=== PATIENT | female | born 1930 | race Caucasian/White ===

== ENCOUNTER 2016-10-16 19:17 | Inpatient (IN) | payer MEDICARE, BC ==
--- NOTE | 2016-10-16 19:19 | EDM.PDOC ---
ED HPI GENERAL MEDICAL PROBLEM - General Chief Complaint: General Stated Complaint: [facility] Time Seen by Provider: 10/16/16 19:18 - History of Present Illness INITIAL COMMENTS - FREE TEXT/NARRATIVE: 86-year-old female brought [facility] with fever cough and vomiting. Patient has been sick all day today she said several episodes of vomiting she has a worsening cough she was noted to be quite hypoxic at the care home. Patient has advanced dementia and is an unreliable history get. According to family she's had a significant past medical history advancing dementia prior to this had fibromyalgia hypothyroidism. She had an episode, reaction like, on opioid medications that she had a hard time recovering from and she's been in [facility] from that time no history of stroke. She had a history of heart problems in her middle-aged years but apparently this revolved. She's retired schoolteacher. - Related Data Allergies Allergy/AdvReac Type Severity Reaction Status Date / Time erythromycin base Allergy Cannot Verified 10/16/16 19:43 Remember ibuprofen Allergy Cannot Verified 10/16/16 19:43 Remember sulfamethoxazole Allergy Cannot Verified 10/16/16 19:43 Remember Home Meds: Home Meds Acetaminophen 650 mg PO Q6H PRN 05/17/16 [History] Aspirin [Ecotrin] 81 mg PO DAILY 05/17/16 [History] Bisacodyl [Dulcolax] 1 supp RECTAL ASDIRECTED PRN 05/17/16 [History] Cholecalciferol (Vitamin D3) [Vitamin D3] 2,000 unit PO DAILY 05/17/16 [History] Docusate Sodium 100 mg PO BID 05/17/16 [History] Furosemide 80 mg PO DAILY 05/17/16 [History] Insulin Aspart [NovoLOG] 10 unit SUBCUT BID 05/17/16 [History] Insulin Aspart [Novolog Flexpen] 12 units SUBCUT DAILY 05/17/16 [History] Insulin Glarg,Human.Rec.Analog [Lantus Solostar] 32 units SUBCUT DAILY 05/17/16 [History] Levothyroxine [Synthroid] 100 mcg PO DAILY 05/17/16 [History] Lisinopril 20 mg PO BID 05/17/16 [History] Memantine HCl/Donepezil HCl [Namzaric 28 mg-10 mg Capsule] 1 tab PO BEDTIME [History] Multivitamin/Iron/Folic Acid [Centrum Complete Multivit] 1 tab PO DAILY [History] [place]-3 Fatty Acids [Fish Oil] 1,000 mg PO DAILY 05/17/16 [History] Potassium Chloride 20 meq PO QID 05/17/16 [History] Simvastatin [Zocor] 20 mg PO BEDTIME 05/17/16 [History] traMADol [Ultram] 50 mg PO Q6HR PRN 05/17/16 [History] Past Medical History Cardiovascular History: Reports: High cholesterol, Hypertension Other Cardiovascular History: edema Gastrointestinal History: Reports: Chronic constipation, GERD Musculoskeletal History: Reports: Fibromyalgia, Osteoarthritis, Other (see below ) Other Musculoskeletal History: Dorsalgia, generalized muscle weakness, difficulty walking, chronic pain Psychiatric History: Reports: Anxiety, Dementia, Depression Other Psychiatric History: mood disorder with major depressive-like episode Endocrine/Metabolic History: Reports: Diabetes, type II, Hypothyroidism Social & Family History - Tobacco Use Smoking Status *Q: Never Smoker - Recreational Drug Use Recreational Drug Use: No ED ROS GENERAL - Review of Systems Review Of Systems: Unable To Obtain ED EXAM, GENERAL - Physical Exam Exam: See Below Exam Limited By: Other (Dementia) General Appearance: no apparent distress, other ( she will answer only the simplest of questions) Eye Exam: bilateral eye: normal inspection Ears: normal external exam, normal canal, normal TMs Nose: normal inspection, normal mucosa, no blood Throat/Mouth: Normal inspection, Normal teeth, Normal gums, Normal oropharynx, Normal voice, No airway compromise, Other (Summary dry mucosa) Head: atraumatic, normocephalic Neck: normal inspection, non-tender. No: lymphadenopathy (L), lymphadenopathy ( R) Respiratory/Chest: no respiratory distress, normal breath sounds, other (She has bibasilar crackles these did clear somewhat with repetitive deep breathing) Cardiovascular: regular rate, rhythm, no murmur, other (2+ pitting edema per family this is normal). No: no edema GI/Abdominal: normal bowel sounds, soft, non tender, no organomegaly, no distention, no abnormal bruit, no mass, other (Obesity) Neurological: other (Neuro exam is limited she does have equal party director strength noted bilaterally however her party director is weak). No: normal cognition Skin Exam: Warm, Dry, Intact Lymphatic: no adenopathy Course - Vital Signs Last Recorded V/S: Last Vital Signs Temp 36.5 C 10/16/16 19:19 Pulse 91 10/16/16 19:19 Resp 20 10/16/16 19:19 BP 96/56 L 10/16/16 19:19 Pulse Ox 91 L 10/16/16 19:19 - Orders/Labs/Meds Orders: Active Orders 24 hr Category Date Time Status Patient Status [ADT] Stat ADT 10/16/16 21:01 Active EKG Documentation Completion [RC] STAT Care 10/16/16 19:31 Active Chest 1V Frontal [CR] Stat Exams 10/16/16 19:30 Taken CULTURE BLOOD [BC] Stat Lab 10/16/16 19:47 Received CULTURE BLOOD [BC] Stat Lab 10/16/16 19:57 Received CULTURE URINE [RM] Stat Lab 10/16/16 20:26 Received Lactated Ringers [Ringers, Lactated] 1,000 ml Med 10/16/16 19:45 Active IV ASDIRECTED Blood Culture x2 Reflex Set [OM.PC] Stat Oth 10/16/16 19:33 Ordered Medication Orders Lactated Ringer's (Ringers, Lactated) 1,000 mls @ 125 mls/hr IV ASDIRECTED JOHNNIE Labs: Laboratory Tests 10/16/16 10/16/16 10/16/16 Range/Units 19:47 19:47 19:47 WBC 8.35 (3.98-10.04) K/mm3 RBC 4.80 (3.98-5.22) M/mm3 Hgb 15.3 (11.2-15.7) gm/L Hct 46.6 H (34.1-44.9) % MCV 97.1 H (79.4-94.8) fl MCH 31.9 (25.6-32.2) pg MCHC 32.8 (32.2-35.5) g/dl RDW Std Deviation 47.7 H (36.4-46.3) fL Plt Count 159 L (182-369) K/mm3 MPV 10.0 (9.4-12.3) fl Neutrophils % (Manual) 76 H (40-60) % Band Neutrophils % 15 H (0-10) % Lymphocytes % (Manual) 4 L (20-40) % Atypical Lymphs % 2 % Monocytes % (Manual) 3 (2-10) % Eosinophils % (Manual) 0 L (0.7-5.8) % Basophils % (Manual) 0 L (0.1-1.2) Toxic Granulation 1+ slight Platelet Estimate Decreased Plt Morphology Comment Normal Polychromasia Few Stomatocytes Few RBC Morph Comment Not Reportable PT 10.2 (8.0-13.0) SECONDS INR 0.94 APTT 24 (22-36) SECONDS Sodium 144 (136-145) mEq/L Potassium 3.8 (3.5-5.1) mEq/L Chloride 104 (98-107) mEq/L Carbon Dioxide 32 (21-32) mEq/L Anion Gap 11.8 (5-15) BUN 30 H (7-18) mg/dL Creatinine 1.4 H (0.55-1.02) mg/dL Est Cr Clr Drug Dosing 27.50 mL/min Estimated GFR (MDRD) 36 (>60) mL/min BUN/Creatinine Ratio 21.4 H (14-18) Glucose 153 H (83-115) mg/dL Lactic Acid (0.4-2.0) mmol/L Calcium 8.9 (8.5-10.1) mg/dL Total Bilirubin 0.6 (0.2-1.0) mg/dL AST 26 (15-37) U/L ALT 39 (14-59) U/L Alkaline Phosphatase 83 (46-116) U/L Troponin I (0.00-0.056) ng/mL B-Natriuretic Peptide (0-100) pg/mL Total Protein 6.3 L (6.4-8.2) g/dl Albumin 2.9 L (3.4-5.0) g/dl Globulin 3.4 gm/dL Albumin/Globulin Ratio 0.9 L (1-2) TSH 3rd Generation (0.358-3.74) uIU/mL Urine Color (Yellow) Urine Appearance (Clear) Urine pH (5.0-8.0) Ur Specific [place] (1.005-1.030) Urine Protein (Negative) Urine Glucose (UA) (Negative) Urine Ketones (Negative) Urine Occult Blood (Negative) Urine Nitrite (Negative) Urine Bilirubin (Negative) Urine Urobilinogen (0.2-1.0) Ur Leukocyte Esterase (Negative) Urine RBC (0-5) /hpf Urine WBC (0-5) /hpf Urine WBC Clumps (NOT SEEN) /hpf Ur Epithelial Cells (0-5) /hpf Urine Bacteria (FEW) /hpf Urine Mucus (FEW) /hpf Urine Yeast (NOT SEEN) Mycoplasma pneumon IgM (NEGATIVE) 10/16/16 10/16/16 10/16/16 Range/Units 19:47 19:47 19:47 WBC (3.98-10.04) K/mm3 RBC (3.98-5.22) M/mm3 Hgb (11.2-15.7) gm/L Hct (34.1-44.9) % MCV (79.4-94.8) fl MCH (25.6-32.2) pg MCHC (32.2-35.5) g/dl RDW Std Deviation (36.4-46.3) fL Plt Count (182-369) K/mm3 MPV (9.4-12.3) fl Neutrophils % (Manual) (40-60) % Band Neutrophils % (0-10) % Lymphocytes % (Manual) (20-40) % Atypical Lymphs % % Monocytes % (Manual) (2-10) % Eosinophils % (Manual) (0.7-5.8) % Basophils % (Manual) (0.1-1.2) Toxic Granulation Platelet Estimate Plt Morphology Comment Polychromasia Stomatocytes RBC Morph Comment PT (8.0-13.0) SECONDS INR APTT (22-36) SECONDS Sodium (136-145) mEq/L Potassium (3.5-5.1) mEq/L Chloride (98-107) mEq/L Carbon Dioxide (21-32) mEq/L Anion Gap (5-15) BUN (7-18) mg/dL Creatinine (0.55-1.02) mg/dL Est Cr Clr Drug Dosing mL/min Estimated GFR (MDRD) (>60) mL/min BUN/Creatinine Ratio (14-18) Glucose (83-115) mg/dL Lactic Acid 1.8 (0.4-2.0) mmol/L Calcium (8.5-10.1) mg/dL Total Bilirubin (0.2-1.0) mg/dL AST (15-37) U/L ALT (14-59) U/L Alkaline Phosphatase (46-116) U/L Troponin I 0.035 (0.00-0.056) ng/mL B-Natriuretic Peptide (0-100) pg/mL Total Protein (6.4-8.2) g/dl Albumin (3.4-5.0) g/dl Globulin gm/dL Albumin/Globulin Ratio (1-2) TSH 3rd Generation 1.556 (0.358-3.74) uIU/mL Urine Color (Yellow) Urine Appearance (Clear) Urine pH (5.0-8.0) Ur Specific [place] (1.005-1.030) Urine Protein (Negative) Urine Glucose (UA) (Negative) Urine Ketones (Negative) Urine Occult Blood (Negative) Urine Nitrite (Negative) Urine Bilirubin (Negative) Urine Urobilinogen (0.2-1.0) Ur Leukocyte Esterase (Negative) Urine RBC (0-5) /hpf Urine WBC (0-5) /hpf Urine WBC Clumps (NOT SEEN) /hpf Ur Epithelial Cells (0-5) /hpf Urine Bacteria (FEW) /hpf Urine Mucus (FEW) /hpf Urine Yeast (NOT SEEN) Mycoplasma pneumon IgM (NEGATIVE) 10/16/16 10/16/16 10/16/16 Range/Units 19:47 19:47 20:25 WBC (3.98-10.04) K/mm3 RBC (3.98-5.22) M/mm3 Hgb (11.2-15.7) gm/L Hct (34.1-44.9) % MCV (79.4-94.8) fl MCH (25.6-32.2) pg MCHC (32.2-35.5) g/dl RDW Std Deviation (36.4-46.3) fL Plt Count (182-369) K/mm3 MPV (9.4-12.3) fl Neutrophils % (Manual) (40-60) % Band Neutrophils % (0-10) % Lymphocytes % (Manual) (20-40) % Atypical Lymphs % % Monocytes % (Manual) (2-10) % Eosinophils % (Manual) (0.7-5.8) % Basophils % (Manual) (0.1-1.2) Toxic Granulation Platelet Estimate Plt Morphology Comment Polychromasia Stomatocytes RBC Morph Comment PT (8.0-13.0) SECONDS INR APTT (22-36) SECONDS Sodium (136-145) mEq/L Potassium (3.5-5.1) mEq/L Chloride (98-107) mEq/L Carbon Dioxide (21-32) mEq/L Anion Gap (5-15) BUN (7-18) mg/dL Creatinine (0.55-1.02) mg/dL Est Cr Clr Drug Dosing mL/min Estimated GFR (MDRD) (>60) mL/min BUN/Creatinine Ratio (14-18) Glucose (83-115) mg/dL Lactic Acid (0.4-2.0) mmol/L Calcium (8.5-10.1) mg/dL Total Bilirubin (0.2-1.0) mg/dL AST (15-37) U/L ALT (14-59) U/L Alkaline Phosphatase (46-116) U/L Troponin I (0.00-0.056) ng/mL B-Natriuretic Peptide 60 (0-100) pg/mL Total Protein (6.4-8.2) g/dl Albumin (3.4-5.0) g/dl Globulin gm/dL Albumin/Globulin Ratio (1-2) TSH 3rd Generation (0.358-3.74) uIU/mL Urine Color Yellow (Yellow) Urine Appearance Slt cloudy H (Clear) Urine pH 7.0 (5.0-8.0) Ur Specific [place] 1.020 (1.005-1.030) Urine Protein Negative (Negative) Urine Glucose (UA) Negative (Negative) Urine Ketones Negative (Negative) Urine Occult Blood Negative (Negative) Urine Nitrite Negative (Negative) Urine Bilirubin Negative (Negative) Urine Urobilinogen 0.2 (0.2-1.0) Ur Leukocyte Esterase Negative (Negative) Urine RBC 0-5 (0-5) /hpf Urine WBC 0-5 (0-5) /hpf Urine WBC Clumps Not seen (NOT SEEN) /hpf Ur Epithelial Cells Not seen (0-5) /hpf Urine Bacteria Many H (FEW) /hpf Urine Mucus Not seen (FEW) /hpf Urine Yeast Not seen (NOT SEEN) Mycoplasma pneumon IgM Negative (NEGATIVE) Meds: Medications Generic Name Dose Route Start Last Admin Trade Name Freq PRN Reason Stop Dose Admin Lactated Ringer's 1,000 mls @ 125 mls/hr 10/16/16 19:45 Ringers, Lactated IV ASDIRECTED JOHNNIE Discontinued Medications Generic Name Dose Route Start Last Admin Trade Name [place] PRN Reason Stop Dose Admin Lactated Ringer's 500 mls @ 999 mls/hr 10/16/16 19:32 10/16/16 19:54 Ringers, Lactated IV 10/16/16 20:02 999 mls/hr .BOLUS ONE Administration Ondansetron HCl 4 mg 10/16/16 19:32 10/16/16 19:51 Zofran IVPUSH 10/16/16 19:33 4 mg ONETIME ONE Administration - Re-Assessments/Exams Free Text/Narrative Re-Assessment/Exam: 10/16/16 21:04 Labs reviewed she is somewhat dehydrated she has significant bacteria in her urine without evidence of infection. The patient responded nicely to a 500 cc bolus she's continued on IV fluids but pressure now 102/56 map 68. Patient will be admitted for treatment of dehydration, Dr. Plunkett consulted who will admit. Head CT chest CT nondiagnostic chest x-ray was poor inspiration no acute changes. Departure - Departure Time of Disposition: 21:06 Disposition: Admitted As Inpatient 67 Clinical Impression: Dehydration, Altered mental status, Nausea & vomiting Referrals: Ellie Canada MD [Primary Care Provider] - - My Orders Last 24 Hours: My Active Orders 10/16/16 19:30 Chest 1V Frontal [CR] Stat 10/16/16 19:31 EKG Documentation Completion [RC] STAT 10/16/16 19:33 Blood Culture x2 Reflex Set [OM.PC] Stat 10/16/16 19:45 Lactated Ringers [Ringers, Lactated] 1,000 ml IV ASDIRECTED 10/16/16 19:47 CULTURE BLOOD [BC] Stat 10/16/16 19:57 CULTURE BLOOD [BC] Stat 10/16/16 20:26 CULTURE URINE [RM] Stat 10/16/16 21:01 Patient Status [ADT] Stat - Assessment/Plan Last 24 Hours: My Active Orders 10/16/16 19:30 Chest 1V Frontal [CR] Stat 10/16/16 19:31 EKG Documentation Completion [RC] STAT 10/16/16 19:33 Blood Culture x2 Reflex Set [OM.PC] Stat 10/16/16 19:45 Lactated Ringers [Ringers, Lactated] 1,000 ml IV ASDIRECTED 10/16/16 19:47 CULTURE BLOOD [BC] Stat 10/16/16 19:57 CULTURE BLOOD [BC] Stat 10/16/16 20:26 CULTURE URINE [RM] Stat 10/16/16 21:01 Patient Status [ADT] Stat
[2016-10-16] MEDS ORDERED: Lactated Ringers 500 ML IV ONE (19:32)
[2016-10-16] MEDS ORDERED: Ondansetron 4 MG/2 ML SDV IVPUSH ONE (19:32)
[2016-10-16] MEDS ORDERED: Lactated Ringers 1,000 ML IV SCH (19:45)
--- NOTE | 2016-10-16 20:29 | CT ---
Head CT Technique: Multiple axial sections through the brain were obtained. Intravenous contrast was not utilized. Comparison: Previous head CT study of 04/25/13. Findings: Ventricles along with basal cisterns and sulci over the convexities are moderately prominent. Diminished density is noted within the periventricular and subcortical white matter which is felt compatible with small vessel ischemic demyelination change. Low density is noted within the right frontal region which most likely represents old infarct. 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 No other abnormal parenchymal densities are seen. No evidence of intracranial hemorrhage. No midline shift or mass effect is seen. Bone window settings were reviewed which shows no discrete calvarial abnormality. Visualized sinuses are clear. Impression: 1. Senescent change as noted above. Senescent change has progressed from previous exam. 2. No acute intracranial abnormality is identified. Diagnostic code #2
--- NOTE | 2016-10-16 20:32 | CT ---
Chest CT Technique: Multiple axial sections through the chest were obtained. Intravenous contrast was not utilized. Comparison: No previous chest CT, previous chest x-ray performed earlier on the same day is available. Findings: Atherosclerotic calcification is seen within the thoracic aorta. Mild coronary artery calcification is seen. No pericardial thickening is seen. Small portion of the noncontrast upper abdominal structures appear within normal limits. Calcified granuloma is noted within the right middle lobe measuring approximately 1 cm which is incidental. Mild dependent atelectasis is seen posteriorly within the right lung base. Lungs otherwise are clear. Bone window settings were reviewed which shows minimal degenerative change within the spine. Impression: 1. Incidental findings. Nothing acute is seen on noncontrast chest CT. Diagnostic code #2
[2016-10-16] MEDS ORDERED: 50% Dextrose in Water 50 ML Syringe IVPUSH PRN (21:46)
[2016-10-16] MEDS ORDERED: Acetaminophen Susp 325 MG/10.15 ML UD Cup PO PRN (21:48)
[2016-10-16] MEDS ORDERED: Levofloxacin/Dextrose 5%-Water 750 MG in Premix Bag 1 BAG IV SCH (22:00)
[2016-10-16] MEDS ORDERED: Lactated Ringers 1,000 ML IV ONE (22:00)
[2016-10-16] MEDS: Insulin Aspart 100 Units/ML 3 ML Pen SUBCUT SCH (22:29)
[2016-10-16] MEDS: Sodium Chloride 0.9% 1,000 ML IV SCH (22:30)
[2016-10-17] MEDS: Ondansetron 4 MG/2 ML SDV IVPUSH PRN ×2 (03:30→17:31)
[2016-10-17] MEDS: Sodium Chloride 0.9% 1,000 ML IV SCH (05:58)
[2016-10-17] MEDS: Insulin Aspart 100 Units/ML 3 ML Pen SUBCUT SCH ×4 (06:07→21:23)
--- NOTE | 2016-10-17 09:17 | PCM.HP ---
H&P History of Present Illness - General Date of Service: 10/16/16 Admit Problem/Dx: Admission Diagnosis/Problem Admission Diagnosis/Problem Dehydration Source of Information: Family, Provider History Limitations: Reports: No limitations - History of Present Illness Initial Comments - Free Text/Narative: 86 year old female from [place] with abrupt change in mental status has baseline dementia. History provided by nephew during assessment in ED. Has had decrease oral intake, episodes of nausea and vomiting. Has also had a cough, non-productive. WBCs are 8.35 (neutrophils 76%/bands 15%, CRP to be drawn; lactic acis is unremarkable. Tn as well as TSH are WNL. CXR, 1 view does not reveal an acute process. Onset of Symptoms: Reports: sudden Symptom Onset Date: 10/16/16 Duration of Symptoms: Reports: Hour(s):, Getting worse Location: Reports: generalized Severity: moderate Improves with: Reports: Medication Worsens with: Reports: None Associated Symptoms: Reports: loss of appetite, malaise, nausea/vomiting, weakness - Related Data Allergies/Adverse Reactions: Allergies Allergy/AdvReac Type Severity Reaction Status Date / Time erythromycin base Allergy Cannot Verified 10/16/16 19:43 Remember ibuprofen Allergy Cannot Verified 10/16/16 19:43 Remember sulfamethoxazole Allergy Cannot Verified 10/16/16 19:43 Remember Home Medications: Home Meds Acetaminophen 650 mg PO Q6H PRN 05/17/16 [History] Aspirin [Ecotrin] 81 mg PO DAILY 05/17/16 [History] Bisacodyl [Dulcolax] 1 supp RECTAL ASDIRECTED PRN 05/17/16 [History] Cholecalciferol (Vitamin D3) [Vitamin D3] 2,000 unit PO DAILY 05/17/16 [History] Docusate Sodium 100 mg PO BID 05/17/16 [History] Furosemide 80 mg PO DAILY 05/17/16 [History] Insulin Aspart [NovoLOG] 12 unit SUBCUT ACBREAKFAST 05/17/16 [History] Insulin Aspart [Novolog Flexpen] 14 units SUBCUT ACDINNER 05/17/16 [History] Insulin Glarg,Human.Rec.Analog [Lantus Solostar] 32 units SUBCUT DAILY 05/17/16 [History] Levothyroxine [Synthroid] 100 mcg PO DAILY 05/17/16 [History] Lisinopril 20 mg PO BID 05/17/16 [History] Memantine HCl/Donepezil HCl [Namzaric 28 mg-10 mg Capsule] 1 tab PO BEDTIME [History] Multivitamin/Iron/Folic Acid [Centrum Complete Multivit] 1 tab PO DAILY [History] Scroggins-3 Fatty Acids [Fish Oil] 1,000 mg PO DAILY 05/17/16 [History] Potassium Chloride 20 meq PO QID 05/17/16 [History] Simvastatin [Zocor] 20 mg PO BEDTIME 05/17/16 [History] traMADol [Ultram] 50 mg PO Q6HR PRN 05/17/16 [History] Insulin Aspart [NovoLOG] 12 unit SUBCUT ACLUNCH 10/20/16 [History] Metolazone 2.5 mg PO MOFR 10/20/16 [History] Spironolactone [Aldactone] 12.5 mg PO DAILY #30 tablet 10/21/16 [Rx] Past Medical History Cardiovascular History: Reports: High cholesterol, Hypertension Other Cardiovascular History: edema Gastrointestinal History: Reports: Chronic constipation, GERD Genitourinary History: Reports: Urinary incontinence Musculoskeletal History: Reports: Back pain, chronic, Fibromyalgia, Osteoarthritis, Other (see below) Other Musculoskeletal History: Dorsalgia, generalized muscle weakness, difficulty walking, chronic pain Psychiatric History: Reports: Anxiety, Dementia, Depression Other Psychiatric History: mood disorder with major depressive-like episode Endocrine/Metabolic History: Reports: Diabetes, type II, Hypothyroidism Other Endocrine/Metabolic History: hypokalemia, vitamin deficiency Hematologic History: Reports: Other (see below) Other Hematologic History: vitamin D deficiency, hypokalemia Social & Family History - Family History Family Medical History: Noncontributory - Tobacco Use Smoking Status *Q: Never Smoker Second Hand Smoke Exposure: No - Caffeine Use Caffeine Use: Reports: Coffee - Recreational Drug Use Recreational Drug Use: No H&P Review of Systems - Review of Systems: Review Of Systems: See Below General: Reports: weakness HEENT: Reports: no symptoms Pulmonary: Reports: No Symptoms Cardiovascular: Reports: no symptoms Gastrointestinal: Reports: Decreased appetite Genitourinary: Reports: no symptoms Musculoskeletal: Reports: no symptoms Skin: Reports: no symptoms Psychiatric: Reports: confusion Neurological: Reports: Confusion Hematologic/Lymphatic: Reports: no symptoms Immunologic: Reports: no symptoms Exam - Exam Exam: See Below - Vital Signs Vital Signs: Last Vital Signs Temp 37.1 C 10/17/16 08:18 Pulse 81 10/17/16 08:18 Resp 18 10/17/16 08:18 BP 90/57 L 10/17/16 08:18 Pulse Ox 93 L 10/17/16 08:18 Weight: 99.654 kg - Exam Quality Assessment: DVT prophylaxis General: lethargic HEENT: EOMI, Nares patent, Normal nasal septum, Posterior pharynx clear, Pupils equal, Pupils reactive Neck: supple, trachea midline Lungs: Normal respiratory effort Cardiovascular: regular rate Abdomen: normal bowel sounds, soft (Female) Exam: Deferred Rectal (Female) Exam: Deferred Back Exam: normal inspection Extremities: normal pulses Skin: warm Neurological: cranial nerves intact Neuro Extensive - Mental Status: other (lethargic). No: alert, oriented x3 Neuro Extensive - Motor, Sensory, Reflexes: CN II-XII intact (grossly) - Patient Data Lab Results last 24 hrs: Laboratory Results - last 24 hr 10/16/16 10/17/16 10/17/16 Range/Units 22:15 05:52 05:52 WBC 7.10 (3.98-10.04) K/mm3 RBC 4.10 (3.98-5.22) M/mm3 Hgb 13.2 (11.2-15.7) gm/L Hct 40.8 (34.1-44.9) % MCV 99.5 H (79.4-94.8) fl MCH 32.2 (25.6-32.2) pg MCHC 32.4 (32.2-35.5) g/dl RDW Std Deviation 50.4 H (36.4-46.3) fL Plt Count 145 L (182-369) K/mm3 MPV 10.3 (9.4-12.3) fl Neut % (Auto) 81.5 H (34.0-71.1) % Lymph % (Auto) 9.6 L (19.3-51.7) % Phelps % (Auto) 7.0 (4.7-12.5) % Eos % (Auto) 1.3 (0.7-5.8) Baso % (Auto) 0.3 (0.1-1.2) % Neut # (Auto) 5.79 (1.56-6.13) K/mm3 Lymph # (Auto) 0.68 L (1.18-3.74) K/mm3 [place]ps # (Auto) 0.50 H (0.24-0.36) K/mm3 Eos # (Auto) 0.09 (0.04-0.36) K/mm3 Baso # (Auto) 0.02 (0.01-0.08) K/mm3 Manual Slide Review Abnormal smear Sodium 143 (136-145) mEq/L Potassium 3.9 (3.5-5.1) mEq/L Chloride 105 (98-107) mEq/L Carbon Dioxide 32 (21-32) mEq/L Anion Gap 9.9 (5-15) BUN 33 H (7-18) mg/dL Creatinine 1.5 H (0.55-1.02) mg/dL Est Cr Clr Drug Dosing 25.67 mL/min Estimated GFR (MDRD) 33 (>60) mL/min BUN/Creatinine Ratio 22.0 H (14-18) Glucose 137 H (83-115) mg/dL POC Glucose 181 H (83-110) mg/dL Calcium 7.6 L (8.5-10.1) mg/dL Magnesium 1.6 L (1.8-2.4) mg/dl Total Bilirubin 0.6 (0.2-1.0) mg/dL AST 24 (15-37) U/L ALT 34 (14-59) U/L Alkaline Phosphatase 67 (46-116) U/L C-Reactive Protein 16.4 H* (<1.0) mg/dL Total Protein 5.4 L (6.4-8.2) g/dl Albumin 2.3 L (3.4-5.0) g/dl Globulin 3.1 gm/dL Albumin/Globulin Ratio 0.7 L (1-2) TSH 3rd Generation 1.340 (0.358-3.74) uIU/mL 10/17/16 Range/Units 05:54 WBC (3.98-10.04) K/mm3 RBC (3.98-5.22) M/mm3 Hgb (11.2-15.7) gm/L Hct (34.1-44.9) % MCV (79.4-94.8) fl MCH (25.6-32.2) pg MCHC (32.2-35.5) g/dl RDW Std Deviation (36.4-46.3) fL Plt Count (182-369) K/mm3 MPV (9.4-12.3) fl Neut % (Auto) (34.0-71.1) % Lymph % (Auto) (19.3-51.7) % [place]helps % (Auto) (4.7-12.5) % Eos % (Auto) (0.7-5.8) Baso % (Auto) (0.1-1.2) % Neut # (Auto) (1.56-6.13) K/mm3 Lymph # (Auto) (1.18-3.74) K/mm3 Phelps # (Auto) (0.24-0.36) K/mm3 Eos # (Auto) (0.04-0.36) K/mm3 Baso # (Auto) (0.01-0.08) K/mm3 Manual Slide Review Sodium (136-145) mEq/L Potassium (3.5-5.1) mEq/L Chloride (98-107) mEq/L Carbon Dioxide (21-32) mEq/L Anion Gap (5-15) BUN (7-18) mg/dL Creatinine (0.55-1.02) mg/dL Est Cr Clr Drug Dosing mL/min Estimated GFR (MDRD) (>60) mL/min BUN/Creatinine Ratio (14-18) Glucose (83-115) mg/dL POC Glucose 133 H (83-110) mg/dL Calcium (8.5-10.1) mg/dL Magnesium (1.8-2.4) mg/dl Total Bilirubin (0.2-1.0) mg/dL AST (15-37) U/L ALT (14-59) U/L Alkaline Phosphatase (46-116) U/L C-Reactive Protein (<1.0) mg/dL Total Protein (6.4-8.2) g/dl Albumin (3.4-5.0) g/dl Globulin gm/dL Albumin/Globulin Ratio (1-2) TSH 3rd Generation (0.358-3.74) uIU/mL Result Diagrams: 10/21/16 05:50 10/21/16 05:50 *Q Meaningful Use (ADM) - VTE *Q VTE Criteria *Q: - Stroke *Q Stroke Criteria *Q: - AMI *Q AMI Criteria *Q: - Problem List (1) Altered mental status SNOMED Code(s): 925859361 ICD Code: R41.82 - ALTERED MENTAL STATUS, UNSPECIFIED Status: Resolved Priority: High Qualifiers: Altered mental status type: disorientation Qualified Code(s): R41.0 - Disorientation, unspecified (2) Dehydration SNOMED Code(s): 09736348 ICD Code: E86.0 - DEHYDRATION Status: Resolved Priority: High (3) Nausea & vomiting SNOMED Code(s): 76857532 ICD Code: R11.2 - NAUSEA WITH VOMITING, UNSPECIFIED Status: Acute Qualifiers: Vomiting type: unspecified Vomiting Intractability: unspecified Qualified Code(s): R11.2 - Nausea with vomiting, unspecified Problem List Initiated/Reviewed/Updated: Yes Orders Last 24hrs: Active Orders 24 hr Category Date Time Status Accu Check [Blood Glucose Check, Bedside] [RC] ,, Care 10/16/16 21:46 Active ,22 Antiembolic Devices [RC] BID Care 10/16/16 21:43 Active Aspiration Precautions [RC] ASDIRECTED Care 10/16/16 21:44 Active Bedrest [RC] ASDIRECTED Care 10/16/16 22:07 Active Communication Order [RC] ROUTINE Care 10/17/16 18:00 Active HOB [Head of Bed Elevation] [RC] ASDIRECTED Care 10/16/16 21:44 Active Vital Signs [RC] 03,09,15,21 Care 10/16/16 21:49 Active Full Liquid Diet [DIET] Diet 10/17/16 Lunch Active CXR [Chest 2V] [CR] Routine Exams 10/18/16 08:00 Ordered CBC W/O DIFF,HEMOGRAM [HEME] MOTH@0700 Lab 10/18/16 07:00 Ordered CBC W/O DIFF,HEMOGRAM [HEME] MOTH@0700 Lab 10/21/16 07:00 Ordered CBC W/O DIFF,HEMOGRAM [HEME] MOTH@0700 Lab 10/25/16 07:00 Ordered CBC W/O DIFF,HEMOGRAM [HEME] MOTH@0700 Lab 10/28/16 07:00 Ordered CBC W/O DIFF,HEMOGRAM [HEME] MOTH@0700 Lab 11/01/16 07:00 Ordered CBC W/O DIFF,HEMOGRAM [HEME] MOTH@0700 Lab 11/04/16 07:00 Ordered CULTURE MRSA SURVEY [RM] Routine Lab 10/17/16 06:00 Received INFLUENZA A,B, H1N1 BY PCR [MREF] Routine Lab 10/17/16 12:00 Uncollected MYCOPLASMA PNEUMONIAE IGM AB [CHEM] Routine Lab 10/17/16 12:00 Ordered STREP PNEUMONIAE ANTIGEN [MREF] Routine Lab 10/17/16 12:00 Uncollected Acetaminophen [Tylenol Solution] Med 10/16/16 21:48 Active 650 mg PO Q6H PRN Dextrose 50% in Water Med 10/16/16 21:46 Active 50 ml IVPUSH ASDIRECTED PRN Enoxaparin [Lovenox] Med 10/17/16 09:00 Active 30 mg SUBCUT DAILY Insulin Aspart [NovoLOG] Med 10/16/16 22:00 Active See Protocol SUBCUT QIDACANDBED Levofloxacin/Dextrose 5%-Water [Levaquin in D5W 750 MG/ Med 10/16/16 22:00 Active 150 ML] 750 mg Premix Bag 1 bag IV Q48H Ondansetron [Zofran] Med 10/17/16 03:22 Active 4 mg IVPUSH Q4H PRN Sodium Chloride 0.9% [Normal Saline] 1,000 ml Med 10/16/16 21:45 Active IV ASDIRECTED Sodium Chloride 0.9% [Normal Saline] 1,000 ml Med 10/17/16 18:00 Active IV ASDIRECTED SHAINA Hose [Antiembolic Hose] [OM.PC] Routine Oth 10/16/16 21:43 Ordered Code Status [Resuscitation Status] Routine Resus Stat 10/16/16 21:49 Ordered Medication Orders Acetaminophen (Tylenol Solution) 650 mg PO Q6H PRN PRN Reason: Fever Dextrose/Water (Dextrose 50% In Water) 50 ml IVPUSH ASDIRECTED PRN PRN Reason: Hypoglycemia Enoxaparin Sodium (Lovenox) 30 mg SUBCUT DAILY [facility] Levofloxacin/Dextrose 750 mg/ (Premix) 150 mls @ 100 mls/hr IV Q48H [facility] Last Admin: 10/16/16 22:27 Dose: 100 mls/hr Sodium Chloride (Normal Saline) 1,000 mls @ 125 mls/hr IV ASDIRECTED JOHNNIE Stop: 10/17/16 18:00 Last Admin: 10/17/16 05:58 Dose: 125 mls/hr Infusion: 10/17/16 05:58 Dose: 125 mls/hr Admin: 10/16/16 22:30 Dose: 125 mls/hr Sodium Chloride (Normal Saline) 1,000 mls @ 70 mls/hr IV ASDIRECTED [facility] Insulin Aspart (Novolog) 0 unit SUBCUT QIDACANDBED JOHNNIE PRN Reason: Protocol Last Admin: 10/17/16 06:07 Dose: Not Given Admin: 10/16/16 22:29 Dose: Ondansetron HCl (Zofran) 4 mg IVPUSH Q4H PRN PRN Reason: Nausea Last Admin: 10/17/16 03:30 Dose: 4 mg Assessment/Plan Comment:: Impression/Plan: AMS, unspecified; has baseline dementia likely Alzheimer Mood disorder, unspecified Infectious process has not been ruled out Chronic Hyperlipidemia HTN GERD DM type 2 Hypothyroidism Plan: Continue IVF Replace electrolytes Empiric levoquin, renal dose if needed; cover for PNA as well as UTI BC/UC DVT/GI prophylaxis
--- NOTE | 2016-10-17 09:26 | CR ---
Chest: Portable view of the chest was obtained. Comparison: Previous chest x-ray of 04/25/13. Heart size is slightly enlarged. Lungs are clear with no acute infiltrates. Tortuous thoracic aorta is seen. Bony structures are grossly intact. Impression: 1. Mild cardiomegaly. Nothing acute seen on portable chest x-ray. Diagnostic code #2
[2016-10-17] MEDS ORDERED: Acetaminophen Soln 650 MG/20.3 ML UD Cup PO PRN (09:39)
[2016-10-17] MEDS: Enoxaparin 30 MG/0.3 ML Syringe SUBCUT SCH (09:51)
[2016-10-17] MEDS ORDERED: Magnesium Sulfate/Water 4 GM in Premix Bag 1 BAG IV ONE (14:32)
--- NOTE | 2016-10-17 15:26 | PCM.PN ---
- General Info Date of Service: 10/17/16 Subjective Update: This point patient was reported to be drowsy and sleeping. She did not sleep well last night. She's not reporting any significant nausea or vomiting. Nurse has not observed her coughing today. On review of systems, Patient is not reporting any chest pain, any shortness of breath, abdominal pain or nausea. - Review of Systems Cardiovascular: Denies: Chest Pain Gastrointestinal: Denies: Abdominal pain, Nausea - Patient Data Vitals - most recent: Last Vital Signs Temp 37.1 C 10/17/16 08:18 Pulse 81 10/17/16 08:18 Resp 18 10/17/16 08:18 BP 90/57 L 10/17/16 08:18 Pulse Ox 93 L 10/17/16 08:18 Weight - most recent: 99.654 kg I&O - last 24 hours: Intake & Output 10/17/16 10/17/16 10/17/16 06:59 14:59 22:59 Intake Total 1190 831 Balance 1190 831 Lab Results last 24 hrs: Laboratory Results - last 24 hr 10/16/16 10/17/16 10/17/16 Range/Units 22:15 05:52 05:52 WBC 7.10 (3.98-10.04) K/mm3 RBC 4.10 (3.98-5.22) M/mm3 Hgb 13.2 (11.2-15.7) gm/L Hct 40.8 (34.1-44.9) % MCV 99.5 H (79.4-94.8) fl MCH 32.2 (25.6-32.2) pg MCHC 32.4 (32.2-35.5) g/dl RDW Std Deviation 50.4 H (36.4-46.3) fL Plt Count 145 L (182-369) K/mm3 MPV 10.3 (9.4-12.3) fl Neut % (Auto) 81.5 H (34.0-71.1) % Lymph % (Auto) 9.6 L (19.3-51.7) % [place] % (Auto) 7.0 (4.7-12.5) % Eos % (Auto) 1.3 (0.7-5.8) Baso % (Auto) 0.3 (0.1-1.2) % Neut # (Auto) 5.79 (1.56-6.13) K/mm3 Lymph # (Auto) 0.68 L (1.18-3.74) K/mm3 [place] # (Auto) 0.50 H (0.24-0.36) K/mm3 Eos # (Auto) 0.09 (0.04-0.36) K/mm3 Baso # (Auto) 0.02 (0.01-0.08) K/mm3 Manual Slide Review Abnormal smear Sodium 143 (136-145) mEq/L Potassium 3.9 (3.5-5.1) mEq/L Chloride 105 (98-107) mEq/L Carbon Dioxide 32 (21-32) mEq/L Anion Gap 9.9 (5-15) BUN 33 H (7-18) mg/dL Creatinine 1.5 H (0.55-1.02) mg/dL Est Cr Clr Drug Dosing 25.67 mL/min Estimated GFR (MDRD) 33 (>60) mL/min BUN/Creatinine Ratio 22.0 H (14-18) Glucose 137 H (83-115) mg/dL POC Glucose 181 H (83-110) mg/dL Calcium 7.6 L (8.5-10.1) mg/dL Magnesium 1.6 L (1.8-2.4) mg/dl Total Bilirubin 0.6 (0.2-1.0) mg/dL AST 24 (15-37) U/L ALT 34 (14-59) U/L Alkaline Phosphatase 67 (46-116) U/L C-Reactive Protein 16.4 H* (<1.0) mg/dL Total Protein 5.4 L (6.4-8.2) g/dl Albumin 2.3 L (3.4-5.0) g/dl Globulin 3.1 gm/dL Albumin/Globulin Ratio 0.7 L (1-2) TSH 3rd Generation 1.340 (0.358-3.74) uIU/mL 10/17/16 Range/Units 05:54 WBC (3.98-10.04) K/mm3 RBC (3.98-5.22) M/mm3 Hgb (11.2-15.7) gm/L Hct (34.1-44.9) % MCV (79.4-94.8) fl MCH (25.6-32.2) pg MCHC (32.2-35.5) g/dl RDW Std Deviation (36.4-46.3) fL Plt Count (182-369) K/mm3 MPV (9.4-12.3) fl Neut % (Auto) (34.0-71.1) % Lymph % (Auto) (19.3-51.7) % [place] % (Auto) (4.7-12.5) % Eos % (Auto) (0.7-5.8) Baso % (Auto) (0.1-1.2) % Neut # (Auto) (1.56-6.13) K/mm3 Lymph # (Auto) (1.18-3.74) K/mm3 [place] # (Auto) (0.24-0.36) K/mm3 Eos # (Auto) (0.04-0.36) K/mm3 Baso # (Auto) (0.01-0.08) K/mm3 Manual Slide Review Sodium (136-145) mEq/L Potassium (3.5-5.1) mEq/L Chloride (98-107) mEq/L Carbon Dioxide (21-32) mEq/L Anion Gap (5-15) BUN (7-18) mg/dL Creatinine (0.55-1.02) mg/dL Est Cr Clr Drug Dosing mL/min Estimated GFR (MDRD) (>60) mL/min BUN/Creatinine Ratio (14-18) Glucose (83-115) mg/dL POC Glucose 133 H (83-110) mg/dL Calcium (8.5-10.1) mg/dL Magnesium (1.8-2.4) mg/dl Total Bilirubin (0.2-1.0) mg/dL AST (15-37) U/L ALT (14-59) U/L Alkaline Phosphatase (46-116) U/L C-Reactive Protein (<1.0) mg/dL Total Protein (6.4-8.2) g/dl Albumin (3.4-5.0) g/dl Globulin gm/dL Albumin/Globulin Ratio (1-2) TSH 3rd Generation (0.358-3.74) uIU/mL Med Orders - Current: Current Medications Acetaminophen (Tylenol) 650 mg PO Q6H PRN PRN Reason: Fever Dextrose/Water (Dextrose 50% In Water) 50 ml IVPUSH ASDIRECTED PRN PRN Reason: Hypoglycemia Enoxaparin Sodium (Lovenox) 30 mg SUBCUT DAILY [facility] Last Admin: 10/17/16 09:51 Dose: 30 mg Levofloxacin/Dextrose 750 mg/ (Premix) 150 mls @ 100 mls/hr IV Q48H [facility] Last Admin: 10/16/16 22:27 Dose: 100 mls/hr Magnesium Sulfate 2 gm/ Premix 50 mls @ 25 mls/hr IV Q1H [facility] Stop: 10/17/16 16:59 Insulin Aspart (Novolog) 0 unit SUBCUT QIDACANDBED [facility] PRN Reason: Protocol Last Admin: 10/17/16 11:00 Dose: Not Given Ondansetron HCl (Zofran) 4 mg IVPUSH Q4H PRN PRN Reason: Nausea Last Admin: 10/17/16 03:30 Dose: 4 mg Discontinued Medications Acetaminophen (Tylenol Solution) 650 mg PO Q6H PRN PRN Reason: Fever Lactated Ringer's (Ringers, Lactated) 500 mls @ 999 mls/hr IV .BOLUS ONE Stop: 10/16/16 20:02 Last Admin: 10/16/16 19:54 Dose: 999 mls/hr Lactated Ringer's (Ringers, Lactated) 1,000 mls @ 125 mls/hr IV ASDIRECTED [facility] Sodium Chloride (Normal Saline) 1,000 mls @ 125 mls/hr IV ASDIRECTED [facility] Stop: 10/17/16 18:00 Last Infusion: 10/17/16 12:37 Dose: 0 mls/hr Lactated Ringer's (Ringers, Lactated) 1,000 mls @ 125 mls/hr IV ASDIRECTED ONE Stop: 10/17/16 05:59 Last Admin: 10/16/16 22:31 Dose: Not Given Sodium Chloride (Normal Saline) 1,000 mls @ 70 mls/hr IV ASDIRECTED [facility] Magnesium Sulfate 4 gm/ Premix 100 mls @ 25 mls/hr IV ONETIME ONE Stop: 10/17/16 18:31 Ondansetron HCl (Zofran) 4 mg IVPUSH ONETIME ONE Stop: 10/16/16 19:33 Last Admin: 10/16/16 19:51 Dose: 4 mg - Exam Physical Findings Comments:: Vitals: as above General: alert. NAD Psych: calm and cooperative HEENT: normocephalic, atraumatic. EOMI Cardiac: Normal S1, S2. regular rate. No murmurs rubs, or gallops. No pedal edema. No JVD noted. Lungs: Bibasilar Rales auscultated. no wheezing. good air entry bilaterally. Abd: Soft, NT/ND. No HSM noted. Skin: no new visible rashes or purpura noted Neuro: CN grossly intact. Strength intact and adequate bilaterally. Cognition somewhat impaired with unable to recall history - Problem List & Annotations (1) URI (upper respiratory infection) SNOMED Code(s): 38202964 Code(s): J06.9 - ACUTE UPPER RESPIRATORY INFECTION, UNSPECIFIED Status: Acute Current Visit: Yes Qualifiers: URI type: unspecified viral URI Qualified Code(s): J06.9 - Acute upper respiratory infection, unspecified; B97.89 - Other viral agents as the cause of diseases classified elsewhere (2) Altered mental status SNOMED Code(s): 139478754 Code(s): R41.82 - ALTERED MENTAL STATUS, UNSPECIFIED Status: Acute Current Visit: Yes Qualifiers: Altered mental status type: disorientation Qualified Code(s): R41.0 - Disorientation, unspecified (3) Dehydration SNOMED Code(s): 70128534 Code(s): E86.0 - DEHYDRATION Status: Acute Current Visit: Yes (4) Nausea & vomiting SNOMED Code(s): 98747400 Code(s): R11.2 - NAUSEA WITH VOMITING, UNSPECIFIED Status: Acute Current Visit: Yes Qualifiers: Vomiting type: unspecified Vomiting Intractability: unspecified Qualified Code(s): R11.2 - Nausea with vomiting, unspecified - Problem List Review Problem List Initiated/Reviewed/Updated: Yes - My Orders Last 24 Hours: My Active Orders 10/17/16 14:40 RESPIRATORY PANEL BY PCR [MREF] Urgent - Plan Plan:: Acute encephalopathy, with baseline history of dementia. Possibly secondary to low blood pressure and acute illness. The rest as mentioned below. She is now back to baseline mentation. Hypotension with blood pressure of 82/55 last night, likely secondary to nausea vomiting. Improved 90s with fluid. No evidence of septic shock. Continue to monitor closely. Probable viral URI. Influenza was negative. CT chest was negative for pneumonia. Her sedimentation rate panel pending. Patient was kept on empiric Levaquin, which will be stopped today. Chronic medical conditions: Hyperlipidemia HTN GERD DM type 2 Hypothyroidism Plan to observe off antibiotics today and possible transfer back to her SNF tomorrow.
[2016-10-17] MEDS: Magnesium Sulfate/Water 2 GM in Premix Bag 1 BAG IV SCH ×2 (15:39→17:31)
[2016-10-17] MEDS ORDERED: Sodium Chloride 0.9% 1,000 ML IV SCH (18:00)
[2016-10-18] MEDS: Insulin Aspart 100 Units/ML 3 ML Pen SUBCUT SCH ×4 (06:58→21:45)
[2016-10-18] MEDS: Enoxaparin 30 MG/0.3 ML Syringe SUBCUT SCH (08:12)
[2016-10-18] MEDS ORDERED: Potassium Chloride 10% 20 MEQ/15 ML Soln 30 ML UD Cup PO ONE (08:12)
[2016-10-18] MEDS ORDERED: Acetaminophen 325 MG Tab PO PRN (08:12)
[2016-10-18] MEDS ORDERED: Bisacodyl 10 MG Supp RECTAL PRN (08:12)
[2016-10-18] MEDS ORDERED: traMADol 50 MG Tab PO PRN (08:12)
[2016-10-18] MEDS ORDERED: Furosemide 80 MG Tab PO SCH (09:00)
[2016-10-18] MEDS: Multivitamins,Therapeutic Tab PO SCH (09:23)
[2016-10-18] MEDS: Lisinopril 20 MG Tab PO SCH ×2 (09:23→21:41)
[2016-10-18] MEDS: Levothyroxine 100 MCG Tab PO SCH (09:24)
[2016-10-18] MEDS: Cholecalciferol (Vitamin D3) 1,000 Unit Tab PO SCH (09:24)
[2016-10-18] MEDS: Docusate Sodium 100 MG Cap PO SCH ×2 (09:24→21:41)
[2016-10-18] MEDS: Aspirin 81 MG Tab.EC PO SCH (09:24)
[2016-10-18] MEDS: Fish Oil/Omega-3 Fatty Acids 1 Gm Cap PO SCH (09:24)
[2016-10-18] MEDS: Potassium Chloride 20 MEQ Tab.ER PO SCH ×4 (09:25→21:42)
[2016-10-18] MEDS ORDERED: Furosemide 20 MG/2 ML VIAL IVPUSH ONE (10:11)
--- NOTE | 2016-10-18 11:11 | CR ---
Chest: Portable view of the chest was obtained. Comparison: Previous chest x-ray of 10/16/16. Heart is slightly enlarged. Tortuous thoracic aorta is seen. Lungs are clear with no acute infiltrates. Bony structures are grossly intact. Impression: 1. Slight cardiomegaly. Nothing acute identified on portable chest x-ray. Diagnostic code #2
[2016-10-18] MEDS ORDERED: Furosemide 40 MG/4 ML VIAL IVPUSH ONE (14:50)
--- NOTE | 2016-10-18 15:16 | PCM.PN ---
- General Info Date of Service: 10/18/16 Subjective Update: Patient took off her oxygen and was noted to be as low as in the 40s with her pulse ox saturation earlier this morning. She was placed back on nasal cannula with 2 L oxygen which brought her saturation back up to the 90s. Otherwise there were no other acute events overnight. - Review of Systems General: Denies: Fever Pulmonary: Denies: shortness of breath, cough Cardiovascular: Reports: Chest Pain (It some chest pain early this morning, but did not report any recurrence since then.) Gastrointestinal: Denies: Abdominal pain - Patient Data Vitals - most recent: Last Vital Signs Temp 36.7 C 10/18/16 07:45 Pulse 67 10/18/16 09:46 Resp 24 H 10/18/16 07:45 BP 125/59 L 10/18/16 09:23 Pulse Ox 93 L 10/18/16 09:46 Weight - most recent: 99.972 kg I&O - last 24 hours: Intake & Output 10/18/16 10/18/16 10/18/16 06:59 14:59 22:59 Intake Total 170 360 Balance 170 360 Lab Results last 24 hrs: Laboratory Results - last 24 hr 10/17/16 10/17/16 10/17/16 Range/Units 10:56 17:05 21:16 WBC (3.98-10.04) K/mm3 RBC (3.98-5.22) M/mm3 Hgb (11.2-15.7) gm/L Hct (34.1-44.9) % MCV (79.4-94.8) fl MCH (25.6-32.2) pg MCHC (32.2-35.5) g/dl RDW Std Deviation (36.4-46.3) fL Plt Count (182-369) K/mm3 MPV (9.4-12.3) fl Neut % (Auto) (34.0-71.1) % Lymph % (Auto) (19.3-51.7) % [place] % (Auto) (4.7-12.5) % Eos % (Auto) (0.7-5.8) Baso % (Auto) (0.1-1.2) % Neut # (Auto) (1.56-6.13) K/mm3 Lymph # (Auto) (1.18-3.74) K/mm3 [place] # (Auto) (0.24-0.36) K/mm3 Eos # (Auto) (0.04-0.36) K/mm3 Baso # (Auto) (0.01-0.08) K/mm3 Sodium (136-145) mEq/L Potassium (3.5-5.1) mEq/L Chloride (98-107) mEq/L Carbon Dioxide (21-32) mEq/L Anion Gap (5-15) BUN (7-18) mg/dL Creatinine (0.55-1.02) mg/dL Est Cr Clr Drug Dosing mL/min Estimated GFR (MDRD) (>60) mL/min BUN/Creatinine Ratio (14-18) Glucose (83-115) mg/dL POC Glucose 146 H 150 H 156 H (83-110) mg/dL Calcium (8.5-10.1) mg/dL Magnesium (1.8-2.4) mg/dl Troponin I (0.00-0.056) ng/mL C-Reactive Protein (<1.0) mg/dL 10/18/16 10/18/16 10/18/16 Range/Units 04:57 04:57 04:59 WBC 7.89 (3.98-10.04) K/mm3 RBC 4.36 (3.98-5.22) M/mm3 Hgb 14.3 (11.2-15.7) gm/L Hct 42.9 (34.1-44.9) % MCV 98.4 H (79.4-94.8) fl MCH 32.8 H (25.6-32.2) pg MCHC 33.3 (32.2-35.5) g/dl RDW Std Deviation 51.4 H (36.4-46.3) fL Plt Count 156 L (182-369) K/mm3 MPV 10.6 (9.4-12.3) fl Neut % (Auto) 66.8 (34.0-71.1) % Lymph % (Auto) 23.1 (19.3-51.7) % [place] % (Auto) 8.6 (4.7-12.5) % Eos % (Auto) 1.3 (0.7-5.8) Baso % (Auto) 0.1 (0.1-1.2) % Neut # (Auto) 5.27 (1.56-6.13) K/mm3 Lymph # (Auto) 1.82 (1.18-3.74) K/mm3 [place] # (Auto) 0.68 H (0.24-0.36) K/mm3 Eos # (Auto) 0.10 (0.04-0.36) K/mm3 Baso # (Auto) 0.01 (0.01-0.08) K/mm3 Sodium 143 (136-145) mEq/L Potassium 3.3 L (3.5-5.1) mEq/L Chloride 104 (98-107) mEq/L Carbon Dioxide 33 H (21-32) mEq/L Anion Gap 9.3 (5-15) BUN 31 H (7-18) mg/dL Creatinine 1.4 H (0.55-1.02) mg/dL Est Cr Clr Drug Dosing 27.50 mL/min Estimated GFR (MDRD) 36 (>60) mL/min BUN/Creatinine Ratio 22.1 H (14-18) Glucose 141 H (83-115) mg/dL POC Glucose 144 H (83-110) mg/dL Calcium 8.3 L (8.5-10.1) mg/dL Magnesium 3.0 H (1.8-2.4) mg/dl Troponin I (0.00-0.056) ng/mL C-Reactive Protein 18.4 H* (<1.0) mg/dL 10/18/16 Range/Units 08:26 WBC (3.98-10.04) K/mm3 RBC (3.98-5.22) M/mm3 Hgb (11.2-15.7) gm/L Hct (34.1-44.9) % MCV (79.4-94.8) fl MCH (25.6-32.2) pg MCHC (32.2-35.5) g/dl RDW Std Deviation (36.4-46.3) fL Plt Count (182-369) K/mm3 MPV (9.4-12.3) fl Neut % (Auto) (34.0-71.1) % Lymph % (Auto) (19.3-51.7) % [place] % (Auto) (4.7-12.5) % Eos % (Auto) (0.7-5.8) Baso % (Auto) (0.1-1.2) % Neut # (Auto) (1.56-6.13) K/mm3 Lymph # (Auto) (1.18-3.74) K/mm3 [place] # (Auto) (0.24-0.36) K/mm3 Eos # (Auto) (0.04-0.36) K/mm3 Baso # (Auto) (0.01-0.08) K/mm3 Sodium (136-145) mEq/L Potassium (3.5-5.1) mEq/L Chloride (98-107) mEq/L Carbon Dioxide (21-32) mEq/L Anion Gap (5-15) BUN (7-18) mg/dL Creatinine (0.55-1.02) mg/dL Est Cr Clr Drug Dosing mL/min Estimated GFR (MDRD) (>60) mL/min BUN/Creatinine Ratio (14-18) Glucose (83-115) mg/dL POC Glucose (83-110) mg/dL Calcium (8.5-10.1) mg/dL Magnesium (1.8-2.4) mg/dl Troponin I < 0.017 (0.00-0.056) ng/mL C-Reactive Protein (<1.0) mg/dL Levi Results last 24 hrs: Microbiology 10/17/16 06:00 MRSA Surveillance Culture - Final Nasal/Axilla/Groin NO MRSA ISOLATED Med Orders - Current: Current Medications Acetaminophen (Tylenol) 650 mg PO Q6H PRN PRN Reason: Fever Acetaminophen (Tylenol) 650 mg PO Q6H PRN PRN Reason: Pain Aspirin (Halfprin) 81 mg PO DAILY [facility] Last Admin: 10/18/16 09:24 Dose: 81 mg Cholecalciferol (Vitamin D3) 2,000 units PO DAILY [facility] Last Admin: 10/18/16 09:24 Dose: 2,000 units Dextrose/Water (Dextrose 50% In Water) 50 ml IVPUSH ASDIRECTED PRN PRN Reason: Hypoglycemia Docusate Sodium (Colace) 100 mg PO BID [facility] Last Admin: 10/18/16 09:24 Dose: 100 mg Enoxaparin Sodium (Lovenox) 30 mg SUBCUT DAILY [facility] Last Admin: 10/18/16 08:12 Dose: 30 mg Fish Oil (Fish Oil) 1 gm PO DAILY [facility] Last Admin: 10/18/16 09:24 Dose: 1 gm Furosemide (Lasix) 80 mg PO DAILY [facility] Last Admin: 10/18/16 09:23 Dose: 80 mg Insulin Aspart (Novolog) 0 unit SUBCUT QIDACANDBED [facility] PRN Reason: Protocol Last Admin: 10/18/16 12:13 Dose: 1 unit Levothyroxine Sodium (Synthroid) 100 mcg PO DAILY [facility] Last Admin: 10/18/16 09:24 Dose: 100 mcg Lisinopril (Prinivil) 20 mg PO BID [facility] Last Admin: 10/18/16 09:23 Dose: 20 mg Multivitamins (Thera) 1 each PO DAILY [facility] Last Admin: 10/18/16 09:23 Dose: 1 each Ondansetron HCl (Zofran) 4 mg IVPUSH Q4H PRN PRN Reason: Nausea Last Admin: 10/17/16 17:31 Dose: 4 mg Memantine Hcl/Donepezil Hcl [ Namzaric 28 Mg-10 Mg Capsule 0 each PO BEDTIME [facility] Potassium Chloride (Klor-Con M20) 20 meq PO QID [facility] Last Admin: 10/18/16 12:13 Dose: 20 meq Simvastatin (Zocor) 20 mg PO BEDTIME [facility] Tramadol HCl (Ultram) 50 mg PO Q6HR PRN PRN Reason: Pain Discontinued Medications Acetaminophen (Tylenol Solution) 650 mg PO Q6H PRN PRN Reason: Fever Bisacodyl (Dulcolax) mg RECTAL ASDIRECTED PRN PRN Reason: Constipation Furosemide (Lasix) 20 mg IVPUSH ONETIME ONE Stop: 10/18/16 10:12 Last Admin: 10/18/16 10:19 Dose: 20 mg Furosemide (Lasix) 60 mg IVPUSH NOW ONE Stop: 10/18/16 14:51 Lactated Ringer's (Ringers, Lactated) 500 mls @ 999 mls/hr IV .BOLUS ONE Stop: 10/16/16 20:02 Last Admin: 10/16/16 19:54 Dose: 999 mls/hr Lactated Ringer's (Ringers, Lactated) 1,000 mls @ 125 mls/hr IV ASDIRECTED JOHNNIE Levofloxacin/Dextrose 750 mg/ (Premix) 150 mls @ 100 mls/hr IV Q48H [facility] Last Admin: 10/16/16 22:27 Dose: 100 mls/hr Sodium Chloride (Normal Saline) 1,000 mls @ 125 mls/hr IV ASDIRECTED JOHNNIE Stop: 10/17/16 18:00 Last Infusion: 10/17/16 12:37 Dose: 0 mls/hr Lactated Ringer's (Ringers, Lactated) 1,000 mls @ 125 mls/hr IV ASDIRECTED ONE Stop: 10/17/16 05:59 Last Admin: 10/16/16 22:31 Dose: Not Given Sodium Chloride (Normal Saline) 1,000 mls @ 70 mls/hr IV ASDIRECTED [facility] Magnesium Sulfate 4 gm/ Premix 100 mls @ 25 mls/hr IV ONETIME ONE Stop: 10/17/16 18:31 Last Admin: 10/17/16 20:13 Dose: Not Given Magnesium Sulfate 2 gm/ Premix 50 mls @ 25 mls/hr IV Q1H [facility] Stop: 10/17/16 16:59 Last Admin: 10/17/16 17:31 Dose: 25 mls/hr Ondansetron HCl (Zofran) 4 mg IVPUSH ONETIME ONE Stop: 10/16/16 19:33 Last Admin: 10/16/16 19:51 Dose: 4 mg Potassium Chloride (Potassium Chloride) 40 meq PO ONETIME ONE Stop: 10/18/16 08:13 Last Admin: 10/18/16 09:23 Dose: 40 meq - Exam Physical Findings Comments:: Vitals: as above General: alert. NAD Psych: calm and cooperative HEENT: normocephalic, atraumatic. EOMI Cardiac: Normal S1, S2. regular rate. No murmurs rubs, or gallops. No pedal edema. No JVD noted. Lungs: Bibasilar Rales auscultated. no wheezing. good air entry bilaterally. Abd: Soft, NT/ND. No HSM noted. Skin: no new visible rashes or purpura noted Neuro: CN grossly intact. Strength intact and adequate bilaterally. Cognition somewhat impaired with unable to recall history - Problem List & Annotations (1) URI (upper respiratory infection) SNOMED Code(s): 80887232 Code(s): J06.9 - ACUTE UPPER RESPIRATORY INFECTION, UNSPECIFIED Status: Acute Current Visit: Yes Qualifiers: URI type: unspecified viral URI Qualified Code(s): J06.9 - Acute upper respiratory infection, unspecified; B97.89 - Other viral agents as the cause of diseases classified elsewhere (2) Altered mental status SNOMED Code(s): 878443383 Code(s): R41.82 - ALTERED MENTAL STATUS, UNSPECIFIED Status: Acute Current Visit: Yes Qualifiers: Altered mental status type: disorientation Qualified Code(s): R41.0 - Disorientation, unspecified (3) Dehydration SNOMED Code(s): 96930637 Code(s): E86.0 - DEHYDRATION Status: Acute Current Visit: Yes (4) Nausea & vomiting SNOMED Code(s): 16993534 Code(s): R11.2 - NAUSEA WITH VOMITING, UNSPECIFIED Status: Acute Current Visit: Yes Qualifiers: Vomiting type: unspecified Vomiting Intractability: unspecified Qualified Code(s): R11.2 - Nausea with vomiting, unspecified (5) Acute respiratory failure with hypoxia SNOMED Code(s): 34170657, 096992887 Code(s): J96.01 - ACUTE RESPIRATORY FAILURE WITH HYPOXIA Status: Acute Current Visit: Yes (6) Fluid overload SNOMED Code(s): 86869128 Code(s): E87.70 - FLUID OVERLOAD, UNSPECIFIED Status: Acute Current Visit : Yes Qualifiers: Hypervolemia type: other Qualified Code(s): E87.79 - Other fluid overload - Problem List Review Problem List Initiated/Reviewed/Updated: Yes - My Orders Last 24 Hours: My Active Orders 10/17/16 14:40 RESPIRATORY PANEL BY PCR [MREF] Urgent 10/18/16 08:12 Acetaminophen [Tylenol] 650 mg PO Q6H PRN traMADol [Ultram] 50 mg PO Q6HR PRN 10/18/16 09:00 Aspirin [Halfprin] 81 mg PO DAILY Cholecalciferol (Vitamin D3) [Vitamin D3] 2,000 units PO DAILY Docusate Sodium [Colace] 100 mg PO BID Fish Oil/[place]-3 Fatty Acids [Fish Oil] 1 gm PO DAILY Furosemide [Lasix] 80 mg PO DAILY Levothyroxine [Synthroid] 100 mcg PO DAILY Lisinopril [Prinivil] 20 mg PO BID Multivitamins,Therapeutic [Thera] 1 each PO DAILY Potassium Chloride [Klor-Con M20] 20 meq PO QID 10/18/16 21:00 Patient's Own Medication [Ptom] 0 each PO BEDTIME Simvastatin [Zocor] 20 mg PO BEDTIME - Plan Plan:: Acute hypoxic respiratory failure due to fluid overload. Patient was given fluids for her hypotension earlier in the hospital stay. Her oral Lasix has been resumed, and she is being diuresis IV Lasix x2 today. Acute encephalopathy, with baseline history of dementia. Possibly secondary to low blood pressure and acute illness. She is now back to baseline mentation. Hypotension with blood pressure of 82/55 last night, likely secondary to nausea vomiting. Improved 90s with fluid. No evidence of septic shock. Continue to monitor closely. Probable viral URI. Influenza was negative. CT chest was negative for pneumonia. Her sedimentation rate panel pending. Stopped empiric Levaquin Chronic medical conditions: Hyperlipidemia HTN GERD DM type 2 Hypothyroidism Plan to observe off antibiotics today and possible transfer back to her SNF tomorrow.
[2016-10-18] MEDS ORDERED: Magnesium Hydroxide 400 MG/5 ML Susp 30 ML Cup PO ONE (17:48)
[2016-10-18] MEDS: MEMANTINE HCL PO SCH (21:42)
[2016-10-18] MEDS: DONEPEZIL HCL PO SCH (21:42)
[2016-10-18] MEDS: Simvastatin 20 MG Tab PO SCH (21:42)
[2016-10-19] MEDS ORDERED: Bumetanide 1 MG/4 ML MDV IVPUSH ONE (07:59)
[2016-10-19] MEDS: Insulin Aspart 100 Units/ML 3 ML Pen SUBCUT SCH ×4 (08:55→21:26)
[2016-10-19] MEDS: Cholecalciferol (Vitamin D3) 1,000 Unit Tab PO SCH (08:56)
[2016-10-19] MEDS: Multivitamins,Therapeutic Tab PO SCH (08:56)
[2016-10-19] MEDS: Docusate Sodium 100 MG Cap PO SCH ×2 (08:56→20:38)
[2016-10-19] MEDS: Aspirin 81 MG Tab.EC PO SCH (08:57)
[2016-10-19] MEDS: Lisinopril 20 MG Tab PO SCH ×2 (08:57→20:38)
[2016-10-19] MEDS: Levothyroxine 100 MCG Tab PO SCH (08:57)
[2016-10-19] MEDS: Potassium Chloride 20 MEQ Tab.ER PO SCH ×4 (08:57→20:38)
[2016-10-19] MEDS: Fish Oil/Omega-3 Fatty Acids 1 Gm Cap PO SCH (08:57)
[2016-10-19] MEDS: Enoxaparin 30 MG/0.3 ML Syringe SUBCUT SCH (08:59)
[2016-10-19] MEDS: methylPREDNISolone Sodium Succinate 40 MG/1 ML SDV IVPUSH SCH ×2 (10:34→20:38)
[2016-10-19] MEDS: Albuterol/Ipratropium 3.0-0.5 MG/3 ML Neb Soln NEB SCH ×3 (12:31→21:10)
[2016-10-19] MEDS ORDERED: Bumetanide 1 MG Tab PO SCH (13:30)
--- NOTE | 2016-10-19 13:36 | PCM.PN ---
- General Info Date of Service: 10/19/16 Admission Dx/Problem (Free Text): Admission Diagnosis/Problem Admission Diagnosis/Problem Dehydration Sammie is a pleasant 86yo female seen this morning with nursing present. She continues on supplemental oxygen which she was not on previously at [facility]. Respiratory viral panel has returned negative Functional Status: Reports: pain controlled, tolerating diet, urinating ( incontinent), new symptoms - Review of Systems General: Reports: Fever (low grade temp overnight) HEENT: Reports: no symptoms Pulmonary: Reports: shortness of breath (mild), cough. Denies: wheezing Cardiovascular: Reports: No Symptoms. Denies: Chest Pain, Palpitations, Lightheadedness Gastrointestinal: Reports: No symptoms Genitourinary: Reports: no symptoms, incontinence (chronic) Skin: Reports: no symptoms. Denies: rash Psychiatric: Denies: anxiety, agitation, hallucinations - Patient Data Vitals - most recent: Last Vital Signs Temp 98.8 F 10/19/16 08:27 Pulse 71 10/19/16 08:27 Resp 12 10/19/16 08:27 BP 104/69 10/19/16 08:57 Pulse Ox 95 10/19/16 12:34 Weight - most recent: 222 lb 8 oz I&O - last 24 hours: Intake & Output 10/18/16 10/19/16 10/19/16 22:59 06:59 14:59 Intake Total 1455 620 200 Balance 1455 620 200 Lab Results last 24 hrs: Laboratory Results - last 24 hr 10/17/16 10/18/16 10/18/16 Range/Units 10:56 12:06 17:26 WBC (3.98-10.04) K/mm3 RBC (3.98-5.22) M/mm3 Hgb (11.2-15.7) gm/L Hct (34.1-44.9) % MCV (79.4-94.8) fl MCH (25.6-32.2) pg MCHC (32.2-35.5) g/dl RDW Std Deviation (36.4-46.3) fL Plt Count (182-369) K/mm3 MPV (9.4-12.3) fl Neut % (Auto) (34.0-71.1) % Lymph % (Auto) (19.3-51.7) % [place] % (Auto) (4.7-12.5) % Eos % (Auto) (0.7-5.8) Baso % (Auto) (0.1-1.2) % Neut # (Auto) (1.56-6.13) K/mm3 Lymph # (Auto) (1.18-3.74) K/mm3 [place] # (Auto) (0.24-0.36) K/mm3 Eos # (Auto) (0.04-0.36) K/mm3 Baso # (Auto) (0.01-0.08) K/mm3 Sodium (136-145) mEq/L Potassium (3.5-5.1) mEq/L Chloride (98-107) mEq/L Carbon Dioxide (21-32) mEq/L Anion Gap (5-15) BUN (7-18) mg/dL Creatinine (0.55-1.02) mg/dL Est Cr Clr Drug Dosing mL/min Estimated GFR (MDRD) (>60) mL/min BUN/Creatinine Ratio (14-18) Glucose (83-115) mg/dL POC Glucose 146 H 175 H 144 H (83-110) mg/dL Calcium (8.5-10.1) mg/dL Magnesium (1.8-2.4) mg/dl C-Reactive Protein (<1.0) mg/dL 10/18/16 10/19/16 10/19/16 Range/Units 21:10 06:00 06:00 WBC 7.55 (3.98-10.04) K/mm3 RBC 4.44 (3.98-5.22) M/mm3 Hgb 13.9 (11.2-15.7) gm/L Hct 44.1 (34.1-44.9) % MCV 99.3 H (79.4-94.8) fl MCH 31.3 (25.6-32.2) pg MCHC 31.5 L (32.2-35.5) g/dl RDW Std Deviation 49.3 H (36.4-46.3) fL Plt Count 156 L (182-369) K/mm3 MPV 10.6 (9.4-12.3) fl Neut % (Auto) 66.8 (34.0-71.1) % Lymph % (Auto) 22.8 (19.3-51.7) % [place] % (Auto) 6.8 (4.7-12.5) % Eos % (Auto) 3.0 (0.7-5.8) Baso % (Auto) 0.3 (0.1-1.2) % Neut # (Auto) 5.05 (1.56-6.13) K/mm3 Lymph # (Auto) 1.72 (1.18-3.74) K/mm3 [place] # (Auto) 0.51 H (0.24-0.36) K/mm3 Eos # (Auto) 0.23 (0.04-0.36) K/mm3 Baso # (Auto) 0.02 (0.01-0.08) K/mm3 Sodium 143 (136-145) mEq/L Potassium 3.8 (3.5-5.1) mEq/L Chloride 104 (98-107) mEq/L Carbon Dioxide 35 H (21-32) mEq/L Anion Gap 7.8 (5-15) BUN 27 H (7-18) mg/dL Creatinine 1.3 H (0.55-1.02) mg/dL Est Cr Clr Drug Dosing 29.62 mL/min Estimated GFR (MDRD) 39 (>60) mL/min BUN/Creatinine Ratio 20.8 H (14-18) Glucose 177 H (83-115) mg/dL POC Glucose 206 H (83-110) mg/dL Calcium 8.3 L (8.5-10.1) mg/dL Magnesium 2.4 (1.8-2.4) mg/dl C-Reactive Protein 9.0 H* (<1.0) mg/dL 10/19/16 Range/Units 06:46 WBC (3.98-10.04) K/mm3 RBC (3.98-5.22) M/mm3 Hgb (11.2-15.7) gm/L Hct (34.1-44.9) % MCV (79.4-94.8) fl MCH (25.6-32.2) pg MCHC (32.2-35.5) g/dl RDW Std Deviation (36.4-46.3) fL Plt Count (182-369) K/mm3 MPV (9.4-12.3) fl Neut % (Auto) (34.0-71.1) % Lymph % (Auto) (19.3-51.7) % [place] % (Auto) (4.7-12.5) % Eos % (Auto) (0.7-5.8) Baso % (Auto) (0.1-1.2) % Neut # (Auto) (1.56-6.13) K/mm3 Lymph # (Auto) (1.18-3.74) K/mm3 [place] # (Auto) (0.24-0.36) K/mm3 Eos # (Auto) (0.04-0.36) K/mm3 Baso # (Auto) (0.01-0.08) K/mm3 Sodium (136-145) mEq/L Potassium (3.5-5.1) mEq/L Chloride (98-107) mEq/L Carbon Dioxide (21-32) mEq/L Anion Gap (5-15) BUN (7-18) mg/dL Creatinine (0.55-1.02) mg/dL Est Cr Clr Drug Dosing mL/min Estimated GFR (MDRD) (>60) mL/min BUN/Creatinine Ratio (14-18) Glucose (83-115) mg/dL POC Glucose 153 H (83-110) mg/dL Calcium (8.5-10.1) mg/dL Magnesium (1.8-2.4) mg/dl C-Reactive Protein (<1.0) mg/dL Levi Results last 24 hrs: Microbiology 10/17/16 14:40 Respiratory Virus Panel (PCR) ([facility]) - Final Nasopharyngeal Swab 10/17/16 06:00 MRSA Surveillance Culture - Final Nasal/Axilla/Groin NO MRSA ISOLATED Med Orders - Current: Current Medications Acetaminophen (Tylenol) 650 mg PO Q6H PRN PRN Reason: Fever Acetaminophen (Tylenol) 650 mg PO Q6H PRN PRN Reason: Pain Last Admin: 10/18/16 21:40 Dose: 650 mg Albuterol/Ipratropium (Duoneb 3.0-0.5 Mg/3 Ml) 3 ml NEB Q6HRRT [facility] Last Admin: 10/19/16 12:31 Dose: 3 ml Aspirin (Halfprin) 81 mg PO DAILY [facility] Last Admin: 10/19/16 08:57 Dose: 81 mg Budesonide (Pulmicort) 0.5 mg NEB BIDRT [facility] Cholecalciferol (Vitamin D3) 2,000 units PO DAILY [facility] Last Admin: 10/19/16 08:56 Dose: 2,000 units Dextrose/Water (Dextrose 50% In Water) 50 ml IVPUSH ASDIRECTED PRN PRN Reason: Hypoglycemia Docusate Sodium (Colace) 100 mg PO BID [facility] Last Admin: 10/19/16 08:56 Dose: 100 mg Enoxaparin Sodium (Lovenox) 30 mg SUBCUT DAILY [facility] Last Admin: 10/19/16 08:59 Dose: 30 mg Fish Oil (Fish Oil) 1 gm PO DAILY [facility] Last Admin: 10/19/16 08:57 Dose: 1 gm Insulin Aspart (Novolog) 0 unit SUBCUT QIDACANDBED [facility] PRN Reason: Protocol Last Admin: 10/19/16 13:18 Dose: 1 unit Levothyroxine Sodium (Synthroid) 100 mcg PO DAILY [facility] Last Admin: 10/19/16 08:57 Dose: 100 mcg Lisinopril (Prinivil) 20 mg PO BID [facility] Last Admin: 10/19/16 08:57 Dose: 20 mg Methylprednisolone Sodium Succinate (Solu-Medrol) 80 mg IVPUSH BID [facility] Last Admin: 10/19/16 10:34 Dose: 80 mg Multivitamins (Thera) 1 each PO DAILY [facility] Last Admin: 10/19/16 08:56 Dose: 1 each Ondansetron HCl (Zofran) 4 mg IVPUSH Q4H PRN PRN Reason: Nausea Last Admin: 10/17/16 17:31 Dose: 4 mg Memantine Hcl/Donepezil Hcl [ Namzaric 28 Mg-10 Mg Capsule 0 each PO BEDTIME [facility] Last Admin: 10/18/16 21:42 Dose: Not Given Potassium Chloride (Klor-Con M20) 20 meq PO QID [facility] Last Admin: 10/19/16 13:20 Dose: 20 meq Simvastatin (Zocor) 20 mg PO BEDTIME [facility] Last Admin: 10/18/16 21:42 Dose: 20 mg Tramadol HCl (Ultram) 50 mg PO Q6HR PRN PRN Reason: Pain Discontinued Medications Acetaminophen (Tylenol Solution) 650 mg PO Q6H PRN PRN Reason: Fever Bisacodyl (Dulcolax) mg RECTAL ASDIRECTED PRN PRN Reason: Constipation Bumetanide (Bumex) 1 mg IVPUSH ONETIME ONE Stop: 10/19/16 08:00 Last Admin: 10/19/16 10:25 Dose: 1 mg Furosemide (Lasix) 80 mg PO DAILY [facility] Last Admin: 10/18/16 09:23 Dose: 80 mg Furosemide (Lasix) 20 mg IVPUSH ONETIME ONE Stop: 10/18/16 10:12 Last Admin: 10/18/16 10:19 Dose: 20 mg Furosemide (Lasix) 60 mg IVPUSH NOW ONE Stop: 10/18/16 14:51 Last Admin: 10/18/16 17:27 Dose: 60 mg Lactated Ringer's (Ringers, Lactated) 500 mls @ 999 mls/hr IV .BOLUS ONE Stop: 10/16/16 20:02 Last Admin: 10/16/16 19:54 Dose: 999 mls/hr Lactated Ringer's (Ringers, Lactated) 1,000 mls @ 125 mls/hr IV ASDIRECTED [facility] Levofloxacin/Dextrose 750 mg/ (Premix) 150 mls @ 100 mls/hr IV Q48H [facility] Last Admin: 10/16/16 22:27 Dose: 100 mls/hr Sodium Chloride (Normal Saline) 1,000 mls @ 125 mls/hr IV ASDIRECTED [facility] Stop: 10/17/16 18:00 Last Infusion: 10/17/16 12:37 Dose: 0 mls/hr Lactated Ringer's (Ringers, Lactated) 1,000 mls @ 125 mls/hr IV ASDIRECTED ONE Stop: 10/17/16 05:59 Last Admin: 10/16/16 22:31 Dose: Not Given Sodium Chloride (Normal Saline) 1,000 mls @ 70 mls/hr IV ASDIRECTED [facility] Magnesium Sulfate 4 gm/ Premix 100 mls @ 25 mls/hr IV ONETIME ONE Stop: 10/17/16 18:31 Last Admin: 10/17/16 20:13 Dose: Not Given Magnesium Sulfate 2 gm/ Premix 50 mls @ 25 mls/hr IV Q1H [facility] Stop: 10/17/16 16:59 Last Admin: 10/17/16 17:31 Dose: 25 mls/hr Magnesium Hydroxide (Milk Of Magnesia) 30 ml PO STAT ONE Stop: 10/18/16 17:49 Last Admin: 10/18/16 18:23 Dose: 30 ml Ondansetron HCl (Zofran) 4 mg IVPUSH ONETIME ONE Stop: 10/16/16 19:33 Last Admin: 10/16/16 19:51 Dose: 4 mg Potassium Chloride (Potassium Chloride) 40 meq PO ONETIME ONE Stop: 10/18/16 08:13 Last Admin: 10/18/16 09:23 Dose: 40 meq - Exam Quality Assessment: supplemental oxygen, DVT prophylaxis General: alert, cooperative, no acute distress HEENT: Pupils equal, Pupils reactive, EOMI, Mucous membr. moist/pink Neck: supple Lungs: Clear to auscultation, Normal respiratory effort, Decreased breath sounds (mid to lower lobes) Cardiovascular: Regular Rate, Regular Rhythm, Other (distant heart tones) Abdomen: bowel sounds present, soft, no tenderness, no distension (Female) Exam: Deferred Extremities: edema (1+ bilat to LE; teds bilat) Peripheral Pulses: 1+: dorsalis pedis (L), dorsalis pedis (R) Skin: warm, dry, intact Neurological: normal speech, normal tone, strength equal bilateral Psy/Mental Status: alert, normal affect, normal mood - Problem List & Annotations (1) Acute respiratory failure with hypoxia SNOMED Code(s): 53574715, 447268020 Code(s): J96.01 - ACUTE RESPIRATORY FAILURE WITH HYPOXIA Status: Acute Priority: High Current Visit: Yes (2) Altered mental status SNOMED Code(s): 202851819 Code(s): R41.82 - ALTERED MENTAL STATUS, UNSPECIFIED Status: Resolved Priority: High Current Visit: Yes Qualifiers: Altered mental status type: disorientation Qualified Code(s): R41.0 - Disorientation, unspecified (3) Dehydration SNOMED Code(s): 91691640 Code(s): E86.0 - DEHYDRATION Status: Resolved Priority: High Current Visit: Yes (4) Fluid overload SNOMED Code(s): 21874831 Code(s): E87.70 - FLUID OVERLOAD, UNSPECIFIED Status: Acute Priority: Medium Current Visit: Yes Qualifiers: Hypervolemia type: other Qualified Code(s): E87.79 - Other fluid overload (5) URI (upper respiratory infection) SNOMED Code(s): 67891452 Code(s): J06.9 - ACUTE UPPER RESPIRATORY INFECTION, UNSPECIFIED Status: Acute Priority: High Current Visit: Yes Qualifiers: URI type: unspecified viral URI Qualified Code(s): J06.9 - Acute upper respiratory infection, unspecified; B97.89 - Other viral agents as the cause of diseases classified elsewhere - Problem List Review Problem List Initiated/Reviewed/Updated: Yes - My Orders Last 24 Hours: My Active Orders 10/19/16 09:05 RT Aerosol Therapy [RC] ASDIRECTED 10/19/16 09:15 methylPREDNISolone Sod Succ [Solu-MEDROL] 80 mg IVPUSH BID 10/19/16 12:00 Albuterol/Ipratropium [DuoNeb 3.0-0.5 MG/3 ML] 3 ml NEB Q6HRRT 10/19/16 13:30 Bumetanide [Bumex] 1 mg PO DAILY 10/19/16 21:00 Budesonide [Pulmicort] 0.5 mg NEB BIDRT 10/19/16 Lunch Heart Healthy Diet [DIET] 10/20/16 05:00 MAGNESIUM [CHEM] Routine 10/20/16 05:11 BASIC METABOLIC PANEL,BMP [CHEM] AM C-REACTIVE PROTEIN [CHEM] AM CBC WITH AUTO DIFF [HEME] AM - Plan Plan:: Acute hypoxic respiratory failure due to fluid overload. Patient was given fluids for her hypotension earlier in the hospital stay. Her oral Lasix has been resumed, and she is being diuresis IV Lasix x2 yesterday with ? unresponsive to lasix -Will diures with bumex today -CXR from yesterday negative for infiltrates/consolidation or acute findings -IV solumedrol 80mg BID -Nebs: pulmicort BID and duoneb Q6hrs -encourage IS and C&DB -cont with teds Acute encephalopathy, with baseline history of dementia. Possibly secondary to low blood pressure and acute illness. She is now back to baseline mentation. -Resolved Hypotension with blood pressure of 82/55 last night, likely secondary to nausea vomiting. Improved 90s with fluid. No evidence of septic shock. Continue to monitor closely. -Resolved Probable viral URI. Influenza was negative. CT chest was negative for pneumonia. Her sedimentation rate panel pending. Stopped empiric Levaquin -Add solumedrol IV today and nebs as above UTI -UC with ecoli, awaiting sensitivity -Rocephin IV to start today Chronic medical conditions: Hyperlipidemia HTN GERD DM type 2 Hypothyroidism Other: GI prophylax DVT prophylax CM/SW for DC planning assistance: plan back to [facility] in next 24-48 hours pending progress Patient is DNR/DNI LOS may be >96 hours due to slower than expected course of recovery, now with + UTI/UC- awaiting sensitivity, diuresis, hypoxia- attempts to wean off of oxygen and pending progress.
[2016-10-19] MEDS: cefTRIAXone 1 GM in Sodium Chloride 0.9% 100 ML IV SCH (15:12)
[2016-10-19] MEDS: Simvastatin 20 MG Tab PO SCH (20:38)
[2016-10-19] MEDS: Famotidine 20 MG Tab PO SCH (20:38)
[2016-10-19] MEDS: DONEPEZIL HCL PO SCH (20:39)
[2016-10-19] MEDS: MEMANTINE HCL PO SCH (20:39)
[2016-10-19] MEDS: Budesonide 0.5 MG/2 ML Neb Susp NEB SCH (21:10)
[2016-10-20] MEDS ORDERED: Nitroglycerin 0.4 MG Tab.SL SL ONE (03:28)
[2016-10-20] MEDS: Budesonide 0.5 MG/2 ML Neb Susp NEB SCH ×2 (05:40→20:42)
[2016-10-20] MEDS: Albuterol/Ipratropium 3.0-0.5 MG/3 ML Neb Soln NEB SCH ×4 (05:40→20:42)
[2016-10-20] MEDS ORDERED: HYDROmorphone 1 MG/ML Syringe IVPUSH ONE (06:00)
--- NOTE | 2016-10-20 06:40 | CR ---
Chest: Portable view of the chest was obtained. Comparison: Previous chest x-ray of 10/18/16. Heart size slightly prominent but accentuated from portable technique. Tortuous thoracic aorta is seen. Lungs are clear with no acute infiltrates. Impression: 1. Stable findings as noted above. Nothing acute is appreciated on portable chest x-ray. Diagnostic code #2 I agree with preliminary report issued by [facility] [employer] (preliminary report dictated on 10/20/16, 5:17 AM Central Time)
[2016-10-20] MEDS ORDERED: Bumetanide 1 MG/4 ML MDV IVPUSH ONE ×3 (08:35→18:52)
[2016-10-20] MEDS: Famotidine 20 MG Tab PO SCH ×2 (09:24→21:11)
[2016-10-20] MEDS: Aspirin 81 MG Tab.EC PO SCH (09:24)
[2016-10-20] MEDS: Levothyroxine 100 MCG Tab PO SCH (09:24)
[2016-10-20] MEDS: Fish Oil/Omega-3 Fatty Acids 1 Gm Cap PO SCH (09:25)
[2016-10-20] MEDS: methylPREDNISolone Sodium Succinate 40 MG/1 ML SDV IVPUSH SCH (09:25)
[2016-10-20] MEDS: Docusate Sodium 100 MG Cap PO SCH ×2 (09:25→21:10)
[2016-10-20] MEDS: Multivitamins,Therapeutic Tab PO SCH (09:25)
[2016-10-20] MEDS: Cholecalciferol (Vitamin D3) 1,000 Unit Tab PO SCH (09:25)
[2016-10-20] MEDS: Potassium Chloride 20 MEQ Tab.ER PO SCH ×4 (09:25→21:10)
[2016-10-20] MEDS: Enoxaparin 30 MG/0.3 ML Syringe SUBCUT SCH (09:25)
[2016-10-20] MEDS: Insulin Aspart 100 Units/ML 3 ML Pen SUBCUT SCH ×4 (09:26→18:26)
[2016-10-20] MEDS: Lisinopril 20 MG Tab PO SCH ×2 (09:27→21:11)
[2016-10-20] MEDS: Saccharomyces Boulardii (Probiotic) 250 MG Cap PO SCH ×2 (11:48→21:11)
[2016-10-20] MEDS: cefTRIAXone 1 GM in Sodium Chloride 0.9% 100 ML IV SCH (13:34)
--- NOTE | 2016-10-20 14:27 | PCM.PN ---
- General Info Date of Service: 10/20/16 Subjective Update: the patient had an episode of chest pain overnight. This time she continued to have oxygen on. EKG, chest x-ray, troponins were checked which were unremarkable. This point she appears to be somewhat more tired than yesterday. She denies any new complaints. He reports the chest pain has resolved. - Review of Systems General: Denies: Fever Cardiovascular: Reports: Chest Pain. Denies: Palpitations Gastrointestinal: Denies: Abdominal pain, Nausea - Patient Data Vitals - most recent: Last Vital Signs Temp 37.0 C 10/20/16 03:20 Pulse 59 L 10/20/16 13:02 Resp 20 10/20/16 08:17 BP 131/60 10/20/16 13:02 Pulse Ox 94 L 10/20/16 13:02 Weight - most recent: 100.652 kg I&O - last 24 hours: Intake & Output 10/19/16 10/20/16 10/20/16 22:59 06:59 14:59 Intake Total 1140 1000 220 Output Total 50 1 Balance 1090 999 220 Lab Results last 24 hrs: Laboratory Results - last 24 hr 10/19/16 10/19/16 10/20/16 Range/Units 17:51 20:35 03:27 WBC (3.98-10.04) K/mm3 RBC (3.98-5.22) M/mm3 Hgb (11.2-15.7) gm/L Hct (34.1-44.9) % MCV (79.4-94.8) fl MCH (25.6-32.2) pg MCHC (32.2-35.5) g/dl RDW Std Deviation (36.4-46.3) fL Plt Count (182-369) K/mm3 MPV (9.4-12.3) fl Neut % (Auto) (34.0-71.1) % Lymph % (Auto) (19.3-51.7) % [place] % (Auto) (4.7-12.5) % Eos % (Auto) (0.7-5.8) Baso % (Auto) (0.1-1.2) % Neut # (Auto) (1.56-6.13) K/mm3 Lymph # (Auto) (1.18-3.74) K/mm3 [place] # (Auto) (0.24-0.36) K/mm3 Eos # (Auto) (0.04-0.36) K/mm3 Baso # (Auto) (0.01-0.08) K/mm3 Puncture Site Rt radial ABG pH 7.43 (7.35-7.45) ABG pCO2 51.2 H (35.0-45.0) mmHg ABG pO2 56.0 L (80.0-100.0) mmHg ABG HCO3 33.1 H (22.0-26.0) meq/L ABG O2 Saturation 92.4 L (96.0-97.0) % ABG Base Excess 7.9 H (-2-2.0) Ross Test Positive O2 Delivery Device Nasal cannula Oxygen Flow Rate 2.0 FiO2 0.00 L (21.00-100.00) % Sodium (136-145) mEq/L Potassium (3.5-5.1) mEq/L Chloride (98-107) mEq/L Carbon Dioxide (21-32) mEq/L Anion Gap (5-15) BUN (7-18) mg/dL Creatinine (0.55-1.02) mg/dL Est Cr Clr Drug Dosing mL/min Estimated GFR (MDRD) (>60) mL/min BUN/Creatinine Ratio (14-18) Glucose (83-115) mg/dL POC Glucose 246 H 276 H (83-110) mg/dL Calcium (8.5-10.1) mg/dL Magnesium (1.8-2.4) mg/dl Troponin I (0.00-0.056) ng/mL C-Reactive Protein (<1.0) mg/dL 10/20/16 10/20/16 10/20/16 Range/Units 03:40 03:40 03:40 WBC 6.97 (3.98-10.04) K/mm3 RBC 4.35 (3.98-5.22) M/mm3 Hgb 13.9 (11.2-15.7) gm/L Hct 42.7 (34.1-44.9) % MCV 98.2 H (79.4-94.8) fl MCH 32.0 (25.6-32.2) pg MCHC 32.6 (32.2-35.5) g/dl RDW Std Deviation 46.7 H (36.4-46.3) fL Plt Count 159 L (182-369) K/mm3 MPV 10.1 (9.4-12.3) fl Neut % (Auto) 84.1 H (34.0-71.1) % Lymph % (Auto) 11.6 L (19.3-51.7) % [place] % (Auto) 2.9 L (4.7-12.5) % Eos % (Auto) 0 L (0.7-5.8) Baso % (Auto) 0.7 (0.1-1.2) % Neut # (Auto) 5.86 (1.56-6.13) K/mm3 Lymph # (Auto) 0.81 L (1.18-3.74) K/mm3 [place] # (Auto) 0.20 L (0.24-0.36) K/mm3 Eos # (Auto) 0.00 L (0.04-0.36) K/mm3 Baso # (Auto) 0.05 (0.01-0.08) K/mm3 Puncture Site ABG pH (7.35-7.45) ABG pCO2 (35.0-45.0) mmHg ABG pO2 (80.0-100.0) mmHg ABG HCO3 (22.0-26.0) meq/L ABG O2 Saturation (96.0-97.0) % ABG Base Excess (-2-2.0) Ross Test O2 Delivery Device Oxygen Flow Rate FiO2 (21.00-100.00) % Sodium 141 (136-145) mEq/L Potassium 4.2 (3.5-5.1) mEq/L Chloride 102 (98-107) mEq/L Carbon Dioxide 33 H (21-32) mEq/L Anion Gap 10.2 (5-15) BUN 30 H (7-18) mg/dL Creatinine 1.5 H (0.55-1.02) mg/dL Est Cr Clr Drug Dosing 25.67 mL/min Estimated GFR (MDRD) 33 (>60) mL/min BUN/Creatinine Ratio 20.0 H (14-18) Glucose 328 H (83-115) mg/dL POC Glucose (83-110) mg/dL Calcium 8.7 (8.5-10.1) mg/dL Magnesium 2.4 (1.8-2.4) mg/dl Troponin I (0.00-0.056) ng/mL C-Reactive Protein 5.1 H* (<1.0) mg/dL 10/20/16 10/20/16 10/20/16 Range/Units 03:40 05:54 07:01 WBC 7.19 (3.98-10.04) K/mm3 RBC 4.12 (3.98-5.22) M/mm3 Hgb 13.2 (11.2-15.7) gm/L Hct 40.4 (34.1-44.9) % MCV 98.1 H (79.4-94.8) fl MCH 32.0 (25.6-32.2) pg MCHC 32.7 (32.2-35.5) g/dl RDW Std Deviation 46.5 H (36.4-46.3) fL Plt Count 157 L (182-369) K/mm3 MPV 9.8 (9.4-12.3) fl Neut % (Auto) 77.4 H (34.0-71.1) % Lymph % (Auto) 16.4 L (19.3-51.7) % [place] % (Auto) 5.4 (4.7-12.5) % Eos % (Auto) 0 L (0.7-5.8) Baso % (Auto) 0.4 (0.1-1.2) % Neut # (Auto) 5.56 (1.56-6.13) K/mm3 Lymph # (Auto) 1.18 (1.18-3.74) K/mm3 [place] # (Auto) 0.39 H (0.24-0.36) K/mm3 Eos # (Auto) 0.00 L (0.04-0.36) K/mm3 Baso # (Auto) 0.03 (0.01-0.08) K/mm3 Puncture Site ABG pH (7.35-7.45) ABG pCO2 (35.0-45.0) mmHg ABG pO2 (80.0-100.0) mmHg ABG HCO3 (22.0-26.0) meq/L ABG O2 Saturation (96.0-97.0) % ABG Base Excess (-2-2.0) Ross Test O2 Delivery Device Oxygen Flow Rate FiO2 (21.00-100.00) % Sodium (136-145) mEq/L Potassium (3.5-5.1) mEq/L Chloride (98-107) mEq/L Carbon Dioxide (21-32) mEq/L Anion Gap (5-15) BUN (7-18) mg/dL Creatinine (0.55-1.02) mg/dL Est Cr Clr Drug Dosing mL/min Estimated GFR (MDRD) (>60) mL/min BUN/Creatinine Ratio (14-18) Glucose (83-115) mg/dL POC Glucose 239 H (83-110) mg/dL Calcium (8.5-10.1) mg/dL Magnesium (1.8-2.4) mg/dl Troponin I < 0.017 (0.00-0.056) ng/mL C-Reactive Protein (<1.0) mg/dL 10/20/16 10/20/16 Range/Units 07:01 11:22 WBC (3.98-10.04) K/mm3 RBC (3.98-5.22) M/mm3 Hgb (11.2-15.7) gm/L Hct (34.1-44.9) % MCV (79.4-94.8) fl MCH (25.6-32.2) pg MCHC (32.2-35.5) g/dl RDW Std Deviation (36.4-46.3) fL Plt Count (182-369) K/mm3 MPV (9.4-12.3) fl Neut % (Auto) (34.0-71.1) % Lymph % (Auto) (19.3-51.7) % [place] % (Auto) (4.7-12.5) % Eos % (Auto) (0.7-5.8) Baso % (Auto) (0.1-1.2) % Neut # (Auto) (1.56-6.13) K/mm3 Lymph # (Auto) (1.18-3.74) K/mm3 [place] # (Auto) (0.24-0.36) K/mm3 Eos # (Auto) (0.04-0.36) K/mm3 Baso # (Auto) (0.01-0.08) K/mm3 Puncture Site ABG pH (7.35-7.45) ABG pCO2 (35.0-45.0) mmHg ABG pO2 (80.0-100.0) mmHg ABG HCO3 (22.0-26.0) meq/L ABG O2 Saturation (96.0-97.0) % ABG Base Excess (-2-2.0) Ross Test O2 Delivery Device Oxygen Flow Rate FiO2 (21.00-100.00) % Sodium 142 (136-145) mEq/L Potassium 4.3 (3.5-5.1) mEq/L Chloride 103 (98-107) mEq/L Carbon Dioxide 35 H (21-32) mEq/L Anion Gap 8.3 (5-15) BUN 31 H (7-18) mg/dL Creatinine 1.3 H (0.55-1.02) mg/dL Est Cr Clr Drug Dosing 29.62 mL/min Estimated GFR (MDRD) 39 (>60) mL/min BUN/Creatinine Ratio 23.8 H (14-18) Glucose 305 H (83-115) mg/dL POC Glucose 277 H (83-110) mg/dL Calcium 8.1 L (8.5-10.1) mg/dL Magnesium (1.8-2.4) mg/dl Troponin I < 0.017 (0.00-0.056) ng/mL C-Reactive Protein 4.3 H* (<1.0) mg/dL Med Orders - Current: Current Medications Acetaminophen (Tylenol) 650 mg PO Q6H PRN PRN Reason: Fever Acetaminophen (Tylenol) 650 mg PO Q6H PRN PRN Reason: Pain Last Admin: 10/18/16 21:40 Dose: 650 mg Albuterol/Ipratropium (Duoneb 3.0-0.5 Mg/3 Ml) 3 ml NEB QIDRT [facility] Last Admin: 10/20/16 10:05 Dose: 3 ml Aspirin (Halfprin) 81 mg PO DAILY [facility] Last Admin: 10/20/16 09:24 Dose: 81 mg Budesonide (Pulmicort) 0.5 mg NEB BIDRT [facility] Last Admin: 10/20/16 05:40 Dose: 0.5 mg Cholecalciferol (Vitamin D3) 2,000 units PO DAILY [facility] Last Admin: 10/20/16 09:25 Dose: 2,000 units Dextrose/Water (Dextrose 50% In Water) 50 ml IVPUSH ASDIRECTED PRN PRN Reason: Hypoglycemia Docusate Sodium (Colace) 100 mg PO BID [facility] Last Admin: 10/20/16 09:25 Dose: 100 mg Enoxaparin Sodium (Lovenox) 30 mg SUBCUT DAILY [facility] Last Admin: 10/20/16 09:25 Dose: 30 mg Famotidine (Pepcid) 20 mg PO BID [facility] Last Admin: 10/20/16 09:24 Dose: 20 mg Fish Oil (Fish Oil) 1 gm PO DAILY [facility] Last Admin: 10/20/16 09:25 Dose: 1 gm Ceftriaxone Sodium 1 gm/ (Sodium Chloride) 100 mls @ 200 mls/hr IV Q24H [facility] Last Admin: 10/20/16 13:34 Dose: 200 mls/hr Insulin Aspart (Novolog) 0 unit SUBCUT QIDACANDBED [facility] PRN Reason: Protocol Last Admin: 10/20/16 11:26 Dose: 3 unit Levothyroxine Sodium (Synthroid) 100 mcg PO DAILY [facility] Last Admin: 10/20/16 09:24 Dose: 100 mcg Lisinopril (Prinivil) 20 mg PO BID [facility] Last Admin: 10/20/16 09:27 Dose: Not Given Methylprednisolone Sodium Succinate (Solu-Medrol) 80 mg IVPUSH DAILY [facility] Multivitamins (Thera) 1 each PO DAILY [facility] Last Admin: 10/20/16 09:25 Dose: 1 each Ondansetron HCl (Zofran) 4 mg IVPUSH Q4H PRN PRN Reason: Nausea Last Admin: 10/17/16 17:31 Dose: 4 mg Memantine Hcl/Donepezil Hcl [ Namzaric 28 Mg-10 Mg Capsule 0 each PO BEDTIME [facility] Last Admin: 10/19/16 20:39 Dose: Not Given Potassium Chloride (Klor-Con M20) 20 meq PO QID [facility] Last Admin: 10/20/16 12:07 Dose: Not Given Saccharomyces Boulardii (Florastor) 250 mg PO BID [facility] Last Admin: 10/20/16 11:48 Dose: 250 mg Simvastatin (Zocor) 20 mg PO BEDTIME [facility] Last Admin: 10/19/16 20:38 Dose: 20 mg Tramadol HCl (Ultram) 50 mg PO Q6HR PRN PRN Reason: Pain Last Admin: 10/20/16 03:16 Dose: 50 mg Discontinued Medications Acetaminophen (Tylenol Solution) 650 mg PO Q6H PRN PRN Reason: Fever Albuterol/Ipratropium (Duoneb 3.0-0.5 Mg/3 Ml) 3 ml NEB Q6HRRT [facility] Last Admin: 10/20/16 05:40 Dose: 3 ml Bisacodyl (Dulcolax) mg RECTAL ASDIRECTED PRN PRN Reason: Constipation Bumetanide (Bumex) 1 mg IVPUSH ONETIME ONE Stop: 10/19/16 08:00 Last Admin: 10/19/16 10:25 Dose: 1 mg Bumetanide (Bumex) 1 mg PO DAILY [facility] Last Admin: 10/19/16 14:59 Dose: 1 mg Bumetanide (Bumex) 2 mg IVPUSH ONETIME ONE Stop: 10/20/16 08:36 Last Admin: 10/20/16 09:26 Dose: Not Given Bumetanide (Bumex) 2 mg IVPUSH ONETIME ONE Stop: 10/20/16 13:19 Last Admin: 10/20/16 13:33 Dose: 2 mg Furosemide (Lasix) 80 mg PO DAILY [facility] Last Admin: 10/18/16 09:23 Dose: 80 mg Furosemide (Lasix) 20 mg IVPUSH ONETIME ONE Stop: 10/18/16 10:12 Last Admin: 10/18/16 10:19 Dose: 20 mg Furosemide (Lasix) 60 mg IVPUSH NOW ONE Stop: 10/18/16 14:51 Last Admin: 10/18/16 17:27 Dose: 60 mg Hydromorphone HCl (Dilaudid) 1 mg IVPUSH ONETIME ONE Stop: 10/20/16 06:01 Last Admin: 10/20/16 06:27 Dose: 0.5 mg Lactated Ringer's (Ringers, Lactated) 500 mls @ 999 mls/hr IV .BOLUS ONE Stop: 10/16/16 20:02 Last Admin: 10/16/16 19:54 Dose: 999 mls/hr Lactated Ringer's (Ringers, Lactated) 1,000 mls @ 125 mls/hr IV ASDIRECTED [facility] Levofloxacin/Dextrose 750 mg/ (Premix) 150 mls @ 100 mls/hr IV Q48H [facility] Last Admin: 10/16/16 22:27 Dose: 100 mls/hr Sodium Chloride (Normal Saline) 1,000 mls @ 125 mls/hr IV ASDIRECTED [facility] Stop: 10/17/16 18:00 Last Infusion: 10/17/16 12:37 Dose: 0 mls/hr Lactated Ringer's (Ringers, Lactated) 1,000 mls @ 125 mls/hr IV ASDIRECTED ONE Stop: 10/17/16 05:59 Last Admin: 10/16/16 22:31 Dose: Not Given Sodium Chloride (Normal Saline) 1,000 mls @ 70 mls/hr IV ASDIRECTED [facility] Magnesium Sulfate 4 gm/ Premix 100 mls @ 25 mls/hr IV ONETIME ONE Stop: 10/17/16 18:31 Last Admin: 10/17/16 20:13 Dose: Not Given Magnesium Sulfate 2 gm/ Premix 50 mls @ 25 mls/hr IV Q1H [facility] Stop: 10/17/16 16:59 Last Admin: 10/17/16 17:31 Dose: 25 mls/hr Insulin Aspart (Novolog) 0 unit SUBCUT QIDACANDBED [facility] PRN Reason: Protocol Last Admin: 10/19/16 17:52 Dose: 3 unit Magnesium Hydroxide (Milk Of Magnesia) 30 ml PO STAT ONE Stop: 10/18/16 17:49 Last Admin: 10/18/16 18:23 Dose: 30 ml Methylprednisolone Sodium Succinate (Solu-Medrol) 80 mg IVPUSH BID [facility] Last Admin: 10/20/16 09:25 Dose: 80 mg Nitroglycerin (Nitrostat) 0.4 mg SL ONETIME ONE Stop: 10/20/16 03:29 Last Admin: 10/20/16 03:45 Dose: 0.4 mg Ondansetron HCl (Zofran) 4 mg IVPUSH ONETIME ONE Stop: 10/16/16 19:33 Last Admin: 10/16/16 19:51 Dose: 4 mg Potassium Chloride (Potassium Chloride) 40 meq PO ONETIME ONE Stop: 10/18/16 08:13 Last Admin: 10/18/16 09:23 Dose: 40 meq - Exam Physical Findings Comments:: Vitals: as above General: alert. NAD Psych: calm and cooperative HEENT: normocephalic, atraumatic. EOMI Cardiac: Normal S1, S2. regular rate. No murmurs rubs, or gallops. No pedal edema. No JVD noted. Lungs: Bibasilar Rales auscultated. no wheezing. good air entry bilaterally. Abd: Soft, NT/ND. No HSM noted. Skin: no new visible rashes or purpura noted Neuro: CN grossly intact. Strength intact and adequate bilaterally. Cognition somewhat impaired with unable to recall history - Problem List & Annotations (1) URI (upper respiratory infection) SNOMED Code(s): 23401133 Code(s): J06.9 - ACUTE UPPER RESPIRATORY INFECTION, UNSPECIFIED Status: Acute Priority: High Current Visit: Yes Qualifiers: URI type: unspecified viral URI Qualified Code(s): J06.9 - Acute upper respiratory infection, unspecified; B97.89 - Other viral agents as the cause of diseases classified elsewhere (2) Altered mental status SNOMED Code(s): 041793157 Code(s): R41.82 - ALTERED MENTAL STATUS, UNSPECIFIED Status: Resolved Priority: High Current Visit: Yes Qualifiers: Altered mental status type: disorientation Qualified Code(s): R41.0 - Disorientation, unspecified (3) Dehydration SNOMED Code(s): 83265029 Code(s): E86.0 - DEHYDRATION Status: Resolved Priority: High Current Visit: Yes (4) Nausea & vomiting SNOMED Code(s): 66806723 Code(s): R11.2 - NAUSEA WITH VOMITING, UNSPECIFIED Status: Acute Current Visit: Yes Qualifiers: Vomiting type: unspecified Vomiting Intractability: unspecified Qualified Code(s): R11.2 - Nausea with vomiting, unspecified (5) Acute respiratory failure with hypoxia SNOMED Code(s): 93475917, 512472572 Code(s): J96.01 - ACUTE RESPIRATORY FAILURE WITH HYPOXIA Status: Acute Priority: High Current Visit: Yes (6) Fluid overload SNOMED Code(s): 36746404 Code(s): E87.70 - FLUID OVERLOAD, UNSPECIFIED Status: Acute Priority: Medium Current Visit: Yes Qualifiers: Hypervolemia type: other Qualified Code(s): E87.79 - Other fluid overload (7) Chest pain SNOMED Code(s): 19853920 Code(s): R07.9 - CHEST PAIN, UNSPECIFIED Status: Acute Current Visit: Yes Qualifiers: Chest pain type: unspecified Qualified Code(s): R07.9 - Chest pain, unspecified - Problem List Review Problem List Initiated/Reviewed/Updated: Yes - My Orders Last 24 Hours: My Active Orders 10/19/16 22:00 Insulin Aspart [NovoLOG] See Protocol SUBCUT QIDACANDBED 10/20/16 03:25 EKG 12 Lead [EKG Documentation Completion] [RC] STAT - Plan Plan:: chest pain with hypoxia. Possibly secondary to ischemia from hypoxia versus due to viral respiratory tract illness. Pulmonary embolus cannot be ruled out, but patient is not a good candidate for CT angiogram. We will attempt to check a VQ scan. chest x-ray, EKG, troponins otherwise unremarkable. Acute hypoxic respiratory failure due to fluid overload. Patient was given fluids for her hypotension earlier in the hospital stay. attempted diuresis IV Lasix x2 yesterday with ? unresponsive to lasix -Will diures with bumex (2mg) today -CXR from yesterday negative for infiltrates/consolidation or acute findings -IV solumedrol 80mg BID -Nebs: pulmicort BID and duoneb Q6hrs -encourage IS and C&DB -cont with teds Acute encephalopathy, with baseline history of dementia. Possibly secondary to low blood pressure and acute illness. She is now back to baseline mentation. -Resolved Hypotension with blood pressure of 90s systolic last night, likely secondary to nausea vomiting. No evidence of septic shock. Continue to monitor closely. -Resolved Probable viral URI. Influenza was negative. CT chest was negative for pneumonia. Her sedimentation rate panel pending. Stopped empiric Levaquin -Added solumedrol IV today and nebs as above UTI -UC with ecoli, -Rocephin IV Chronic medical conditions: Hyperlipidemia HTN GERD DM type 2 Hypothyroidism Other: GI prophylax DVT prophylax CM/SW for DC planning assistance: plan back to [facility] in next 24-48 hours pending progress Patient is DNR/DNI LOS may be >96 hours due to slower than expected course of recovery, now with + UTI/UC- awaiting sensitivity, diuresis, hypoxia- attempts to wean off of oxygen and pending progress.
--- NOTE | 2016-10-20 16:38 | NM ---
Ventilation/perfusion lung scan Technique: 2.2 mCi of technetium 99m MAA was given intravenously. Scintigraphic imaging then obtained over the chest. During the study, 40.3 mCi of technetium 99m DTPA was aerosolized and patient inhaled the mixture and continued scintigraphic imaging was obtained. Findings: Scattered areas of matched defects are seen between the perfusion and ventilation study. No mismatch defects are seen. Findings are felt to have a low probability for pulmonary embolism. Impression: 1. Matched defects. Findings felt to have a low probability for pulmonary embolism. Diagnostic code #2
[2016-10-20] MEDS ORDERED: Insulin Detemir 100 Units/ML 3 ML Pen SUBCUT SCH (21:00)
[2016-10-20] MEDS: Simvastatin 20 MG Tab PO SCH (21:10)
[2016-10-20] MEDS: MEMANTINE HCL PO SCH (21:11)
[2016-10-20] MEDS: DONEPEZIL HCL PO SCH (21:11)
[2016-10-21] MEDS: Insulin Aspart 100 Units/ML 3 ML Pen SUBCUT SCH ×2 (06:00→10:37)
[2016-10-21] MEDS: Albuterol/Ipratropium 3.0-0.5 MG/3 ML Neb Soln NEB SCH ×2 (06:06→09:00)
[2016-10-21] MEDS: Budesonide 0.5 MG/2 ML Neb Susp NEB SCH (06:07)
[2016-10-21] MEDS ORDERED: Magnesium Hydroxide 400 MG/5 ML Susp 30 ML Cup PO ONE (06:10)
[2016-10-21] MEDS ORDERED: Metolazone 5 MG Tab PO ONE (07:06)
[2016-10-21] MEDS ORDERED: acetaZOLAMIDE 250 MG Tab PO ONE (08:05)
[2016-10-21 08:19] VITALS: BP 131/68
[2016-10-21] MEDS ORDERED: Spironolactone 25 MG Tab PO SCH (09:00)
[2016-10-21] MEDS ORDERED: Insulin Detemir 100 Units/ML 3 ML Pen SUBCUT SCH (09:00)
[2016-10-21] MEDS ORDERED: methylPREDNISolone Sodium Succinate 40 MG/1 ML SDV IVPUSH SCH (09:00)
[2016-10-21] MEDS: Saccharomyces Boulardii (Probiotic) 250 MG Cap PO SCH (09:04)
[2016-10-21] MEDS: Famotidine 20 MG Tab PO SCH (09:05)
[2016-10-21] MEDS: Fish Oil/Omega-3 Fatty Acids 1 Gm Cap PO SCH (09:05)
[2016-10-21] MEDS: Cholecalciferol (Vitamin D3) 1,000 Unit Tab PO SCH (09:05)
[2016-10-21] MEDS: Levothyroxine 100 MCG Tab PO SCH (09:05)
[2016-10-21] MEDS: Enoxaparin 30 MG/0.3 ML Syringe SUBCUT SCH (09:05)
[2016-10-21] MEDS: Lisinopril 20 MG Tab PO SCH (09:05)
[2016-10-21] MEDS: Multivitamins,Therapeutic Tab PO SCH (09:05)
[2016-10-21] MEDS: Aspirin 81 MG Tab.EC PO SCH (09:05)
[2016-10-21] MEDS: Potassium Chloride 20 MEQ Tab.ER PO SCH (09:05)
[2016-10-21] MEDS: Docusate Sodium 100 MG Cap PO SCH (09:05)
--- NOTE | 2016-10-21 10:19 | PCM.DCSUM1 ---
Discharge Summary - Hospital Course Free Text/Narrative:: 86 year old female from [place] with abrupt change in mental status has baseline dementia. History provided by nephew during assessment in ED. Has had decrease oral intake, episodes of nausea and vomiting. Has also had a cough, non-productive. WBCs are 8.35 (neutrophils 76%/bands 15%, CRP to be drawn; lactic acis is unremarkable. Tn as well as TSH are WNL. CXR, 1 view does not reveal an acute process. She was hypoxic upon initial evaluation, improved with supplemental oxygen which she has not required in the past. Hospitalist service is consulted for admission for AMS, dehydration, hypoxia and URI. Patient was admitted to medical floor, hydrated with IVF, treated with IV antibiotics. Head CT and Chest CT done in ED were unremarkable/nondiagnositic. Influenza screen was negative. Viral panel was sent out and was also negative. She was treated with solumedrol and aggressive pulmonary toilet with some improvement in hypoxia. Blood cultures were negative. Urine culture did grow ecoli which was sensitive to Rocephin with which she was treated. She developed chest pains on one occasion with negative troponins, no EKG changes, CTA was deferred due to elevated creatinine but VQ scan was done with results with low probability for PE. Repeat CXR was also unremarkable and without acute changes. Patient did slowly improve, needing PRN oxygen and night time oxygen. Dementia and mental status returned to baseline. Patient is discharged back to [place] with follow up with her PCP within 5-7 days of discharge. - Discharge Data Discharge Date: 10/21/16 (admit dated 10/16/16) Discharge Disposition: DC/Tfer to [facility] Condition: Good - Discharge Diagnosis/Problem(s) (1) Acute respiratory failure with hypoxia SNOMED Code(s): 52071913, 679191799 ICD Code: J96.01 - ACUTE RESPIRATORY FAILURE WITH HYPOXIA Status: Acute Priority: Medium (2) Altered mental status SNOMED Code(s): 603976450 ICD Code: R41.82 - ALTERED MENTAL STATUS, UNSPECIFIED Status: Resolved Priority: High Qualifiers: Altered mental status type: disorientation Qualified Code(s): R41.0 - Disorientation, unspecified (3) Dehydration SNOMED Code(s): 16762620 ICD Code: E86.0 - DEHYDRATION Status: Resolved Priority: High (4) Fluid overload SNOMED Code(s): 93571079 ICD Code: E87.70 - FLUID OVERLOAD, UNSPECIFIED Status: Acute Priority: Medium Qualifiers: Hypervolemia type: other Qualified Code(s): E87.79 - Other fluid overload (5) URI (upper respiratory infection) SNOMED Code(s): 96709926 ICD Code: J06.9 - ACUTE UPPER RESPIRATORY INFECTION, UNSPECIFIED Status: Acute Priority: High Qualifiers: URI type: unspecified viral URI Qualified Code(s): J06.9 - Acute upper respiratory infection, unspecified; B97.89 - Other viral agents as the cause of diseases classified elsewhere (6) Dementia SNOMED Code(s): 23515530 ICD Code: F03.90 - UNSPECIFIED DEMENTIA WITHOUT BEHAVIORAL DISTURBANCE Status: Chronic Priority: Medium Qualifiers: Dementia type: unspecified type Dementia behavioral disturbance: without behavioral disturbance Qualified Code(s): F03.90 - Unspecified dementia without behavioral disturbance (7) UTI (urinary tract infection) SNOMED Code(s): 08966611 ICD Code: N39.0 - URINARY TRACT INFECTION, SITE NOT SPECIFIED Status: Acute Priority: High Qualifiers: Urinary tract infection type: acute cystitis Hematuria presence: without hematuria Qualified Code(s): N30.00 - Acute cystitis without hematuria - Patient Summary/Data Operative Procedure(s) Performed: None Complications: None Consults: None Labs Pending at D/C: None Recommended Follow-up Testing/Procedures: Follow up with PCP, Dr Canada within 5-7 days of discharge with lab prior; CBC and BMP PT and OT to cont at [place] after discharge O2 to keep sats >90% PRN Planned Operative Procedure(s) after DC: None Hospital Course: As above - Patient Instructions Diet: Heart Healthy Diet, Fluid Restriction Fluid Restriction: 1500 mL Activity: As Tolerated Showering/Bathing: May Shower Notify Provider of: Fever, Increased Pain, Swelling and Redness (shortness of breath; chest pain) - Discharge Plan Prescriptions/Med Rec: Spironolactone [Aldactone] 12.5 mg PO DAILY #30 tablet Home Medications: Home Meds Acetaminophen 650 mg PO Q6H PRN 05/17/16 [History] Aspirin [Ecotrin] 81 mg PO DAILY 05/17/16 [History] Bisacodyl [Dulcolax] 1 supp RECTAL ASDIRECTED PRN 05/17/16 [History] Cholecalciferol (Vitamin D3) [Vitamin D3] 2,000 unit PO DAILY 05/17/16 [History] Docusate Sodium 100 mg PO BID 05/17/16 [History] Furosemide 80 mg PO DAILY 05/17/16 [History] Insulin Aspart [NovoLOG] 12 unit SUBCUT ACBREAKFAST 05/17/16 [History] Insulin Aspart [Novolog Flexpen] 14 units SUBCUT ACDINNER 05/17/16 [History] Insulin Glarg,Human.Rec.Analog [Lantus Solostar] 32 units SUBCUT DAILY 05/17/16 [History] Levothyroxine [Synthroid] 100 mcg PO DAILY 05/17/16 [History] Lisinopril 20 mg PO BID 05/17/16 [History] Memantine HCl/Donepezil HCl [Namzaric 28 mg-10 mg Capsule] 1 tab PO BEDTIME [History] Multivitamin/Iron/Folic Acid [Centrum Complete Multivit] 1 tab PO DAILY [History] [place]-3 Fatty Acids [Fish Oil] 1,000 mg PO DAILY 05/17/16 [History] Potassium Chloride 20 meq PO QID 05/17/16 [History] Simvastatin [Zocor] 20 mg PO BEDTIME 05/17/16 [History] traMADol [Ultram] 50 mg PO Q6HR PRN 05/17/16 [History] Insulin Aspart [NovoLOG] 12 unit SUBCUT ACLUNCH 10/20/16 [History] Metolazone 2.5 mg PO MOFR 10/20/16 [History] Spironolactone [Aldactone] 12.5 mg PO DAILY #30 tablet 10/21/16 [Rx] Patient Handouts: Hypoxemia, Dehydration, Adult, [id number], Urinary Tract Infection, Adult Forms: ED Department Discharge Referrals: Ellie Canada MD [Primary Care Provider] - (5-7 days) - Discharge Summary/Plan Comment DC Time >30 min.: Yes (40 min) - General Info Date of Service: 10/21/16 Admission Dx/Problem (Free Text: Admission Diagnosis/Problem Admission Diagnosis/Problem Dehydration Sammie is a pleasant 86yo female seen this morning with nursing and Dr. Pickett present. She slept well, good appetite, no n/v/d. VSS- afebrile. Labs stable. She diuresed well yesterday, down 4lb today. VQ scan done yesterday is with low probability for PE. She is down to 1L NC satting in the mid to upper 90's, will attempt to wean. - Review of Systems General: Reports: No Symptoms HEENT: Reports: no symptoms Pulmonary: Reports: no symptoms Cardiovascular: Reports: No Symptoms Gastrointestinal: Reports: No symptoms Genitourinary: Reports: no symptoms Musculoskeletal: Reports: no symptoms Skin: Reports: no symptoms Neurological: Reports: No Symptoms Psychiatric: Reports: no symptoms, other (pleasantly confused) - Patient Data Vitals - Most Recent: Last Vital Signs Temp 97.7 F 10/21/16 08:15 Pulse 71 10/21/16 08:17 Resp 20 10/21/16 08:15 BP 131/68 10/21/16 09:05 Pulse Ox 90 L 10/21/16 09:00 Weight - Most Recent: 224 lb I&O - Last 24 hours: Intake & Output 10/20/16 10/21/16 10/21/16 22:59 06:59 14:59 Intake Total 1230 200 Output Total 700 Balance 530 200 Lab Results - Last 24 hrs: Laboratory Results - last 24 hr 10/20/16 10/20/16 10/20/16 Range/Units 11:22 16:42 21:09 WBC (3.98-10.04) K/mm3 RBC (3.98-5.22) M/mm3 Hgb (11.2-15.7) gm/L Hct (34.1-44.9) % MCV (79.4-94.8) fl MCH (25.6-32.2) pg MCHC (32.2-35.5) g/dl RDW Std Deviation (36.4-46.3) fL Plt Count (182-369) K/mm3 MPV (9.4-12.3) fl Sodium (136-145) mEq/L Potassium (3.5-5.1) mEq/L Chloride (98-107) mEq/L Carbon Dioxide (21-32) mEq/L Anion Gap (5-15) BUN (7-18) mg/dL Creatinine (0.55-1.02) mg/dL Est Cr Clr Drug Dosing mL/min Estimated GFR (MDRD) (>60) mL/min BUN/Creatinine Ratio (14-18) Glucose (83-115) mg/dL POC Glucose 277 H 331 H 333 H (83-110) mg/dL Calcium (8.5-10.1) mg/dL Magnesium (1.8-2.4) mg/dl B-Natriuretic Peptide (0-100) pg/mL 10/21/16 10/21/16 10/21/16 Range/Units 05:50 05:50 05:50 WBC 9.09 (3.98-10.04) K/mm3 RBC 4.26 (3.98-5.22) M/mm3 Hgb 13.6 (11.2-15.7) gm/L Hct 41.7 (34.1-44.9) % MCV 97.9 H (79.4-94.8) fl MCH 31.9 (25.6-32.2) pg MCHC 32.6 (32.2-35.5) g/dl RDW Std Deviation 46.5 H (36.4-46.3) fL Plt Count 181 L (182-369) K/mm3 MPV 9.9 (9.4-12.3) fl Sodium 140 (136-145) mEq/L Potassium 4.1 (3.5-5.1) mEq/L Chloride 103 (98-107) mEq/L Carbon Dioxide 35 H (21-32) mEq/L Anion Gap 6.1 (5-15) BUN 38 H (7-18) mg/dL Creatinine 1.5 H (0.55-1.02) mg/dL Est Cr Clr Drug Dosing 25.67 mL/min Estimated GFR (MDRD) 33 (>60) mL/min BUN/Creatinine Ratio 25.3 H (14-18) Glucose 278 H (83-115) mg/dL POC Glucose (83-110) mg/dL Calcium 8.8 (8.5-10.1) mg/dL Magnesium 2.2 (1.8-2.4) mg/dl B-Natriuretic Peptide 319 H (0-100) pg/mL 10/21/16 Range/Units 05:54 WBC (3.98-10.04) K/mm3 RBC (3.98-5.22) M/mm3 Hgb (11.2-15.7) gm/L Hct (34.1-44.9) % MCV (79.4-94.8) fl MCH (25.6-32.2) pg MCHC (32.2-35.5) g/dl RDW Std Deviation (36.4-46.3) fL Plt Count (182-369) K/mm3 MPV (9.4-12.3) fl Sodium (136-145) mEq/L Potassium (3.5-5.1) mEq/L Chloride (98-107) mEq/L Carbon Dioxide (21-32) mEq/L Anion Gap (5-15) BUN (7-18) mg/dL Creatinine (0.55-1.02) mg/dL Est Cr Clr Drug Dosing mL/min Estimated GFR (MDRD) (>60) mL/min BUN/Creatinine Ratio (14-18) Glucose (83-115) mg/dL POC Glucose 240 H (83-110) mg/dL Calcium (8.5-10.1) mg/dL Magnesium (1.8-2.4) mg/dl B-Natriuretic Peptide (0-100) pg/mL Med Orders - Current: Current Medications Acetaminophen (Tylenol) 650 mg PO Q6H PRN PRN Reason: Fever Acetaminophen (Tylenol) 650 mg PO Q6H PRN PRN Reason: Pain Last Admin: 10/18/16 21:40 Dose: 650 mg Albuterol/Ipratropium (Duoneb 3.0-0.5 Mg/3 Ml) 3 ml NEB QIDRT [facility] Last Admin: 10/21/16 09:00 Dose: 3 ml Aspirin (Halfprin) 81 mg PO DAILY [facility] Last Admin: 10/21/16 09:05 Dose: 81 mg Budesonide (Pulmicort) 0.5 mg NEB BIDRT [facility] Last Admin: 10/21/16 06:07 Dose: 0.5 mg Cholecalciferol (Vitamin D3) 2,000 units PO DAILY [facility] Last Admin: 10/21/16 09:05 Dose: 2,000 units Dextrose/Water (Dextrose 50% In Water) 50 ml IVPUSH ASDIRECTED PRN PRN Reason: Hypoglycemia Docusate Sodium (Colace) 100 mg PO BID [facility] Last Admin: 10/21/16 09:05 Dose: 100 mg Enoxaparin Sodium (Lovenox) 30 mg SUBCUT DAILY [facility] Last Admin: 10/21/16 09:05 Dose: 30 mg Famotidine (Pepcid) 20 mg PO BID [facility] Last Admin: 10/21/16 09:05 Dose: 20 mg Fish Oil (Fish Oil) 1 gm PO DAILY [facility] Last Admin: 10/21/16 09:05 Dose: 1 gm Ceftriaxone Sodium 1 gm/ (Sodium Chloride) 100 mls @ 200 mls/hr IV Q24H [facility] Last Admin: 10/20/16 13:34 Dose: 200 mls/hr Insulin Aspart (Novolog) 0 unit SUBCUT TIDAC [facility] PRN Reason: Protocol Last Admin: 10/21/16 06:00 Dose: 4 units Insulin Aspart (Novolog) 12 unit SUBCUT ACBREAKFAST [facility] Insulin Aspart (Novolog) 14 unit SUBCUT ACDINNER [facility] Insulin Detemir (Levemir) 16 unit SUBCUT BID [facility] Last Admin: 10/21/16 09:06 Dose: 16 units Levothyroxine Sodium (Synthroid) 100 mcg PO DAILY [facility] Last Admin: 10/21/16 09:05 Dose: 100 mcg Lisinopril (Prinivil) 20 mg PO BID [facility] Last Admin: 10/21/16 09:05 Dose: 20 mg Methylprednisolone Sodium Succinate (Solu-Medrol) 80 mg IVPUSH DAILY [facility] Last Admin: 10/21/16 09:06 Dose: 80 mg Metolazone (Zaroxolyn) 2.5 mg PO MOFR [facility] Multivitamins (Thera) 1 each PO DAILY [facility] Last Admin: 10/21/16 09:05 Dose: 1 each Ondansetron HCl (Zofran) 4 mg IVPUSH Q4H PRN PRN Reason: Nausea Last Admin: 10/17/16 17:31 Dose: 4 mg Memantine Hcl/Donepezil Hcl [ Namzaric 28 Mg-10 Mg Capsule 0 each PO BEDTIME [facility] Last Admin: 10/20/16 21:11 Dose: Not Given Potassium Chloride (Klor-Con M20) 20 meq PO QID [facility] Last Admin: 10/21/16 09:05 Dose: 20 meq Saccharomyces Boulardii (Florastor) 250 mg PO BID [facility] Last Admin: 10/21/16 09:04 Dose: 250 mg Simvastatin (Zocor) 20 mg PO BEDTIME [facility] Last Admin: 10/20/16 21:10 Dose: 20 mg Spironolactone (Aldactone) 25 mg PO DAILY [facility] Last Admin: 10/21/16 09:05 Dose: 25 mg Tramadol HCl (Ultram) 50 mg PO Q6HR PRN PRN Reason: Pain Last Admin: 10/20/16 03:16 Dose: 50 mg Discontinued Medications Acetaminophen (Tylenol Solution) 650 mg PO Q6H PRN PRN Reason: Fever Acetazolamide (Diamox) 500 mg PO ONETIME ONE Stop: 10/21/16 08:06 Albuterol/Ipratropium (Duoneb 3.0-0.5 Mg/3 Ml) 3 ml NEB Q6HRRT [facility] Last Admin: 10/20/16 05:40 Dose: 3 ml Bisacodyl (Dulcolax) mg RECTAL ASDIRECTED PRN PRN Reason: Constipation Bumetanide (Bumex) 1 mg IVPUSH ONETIME ONE Stop: 10/19/16 08:00 Last Admin: 10/19/16 10:25 Dose: 1 mg Bumetanide (Bumex) 1 mg PO DAILY [facility] Last Admin: 10/19/16 14:59 Dose: 1 mg Bumetanide (Bumex) 2 mg IVPUSH ONETIME ONE Stop: 10/20/16 08:36 Last Admin: 10/20/16 09:26 Dose: Not Given Bumetanide (Bumex) 2 mg IVPUSH ONETIME ONE Stop: 10/20/16 13:19 Last Admin: 10/20/16 13:33 Dose: 2 mg Bumetanide (Bumex) 2 mg IVPUSH ONETIME ONE Stop: 10/20/16 18:53 Last Admin: 10/20/16 19:04 Dose: 2 mg Furosemide (Lasix) 80 mg PO DAILY [facility] Last Admin: 10/18/16 09:23 Dose: 80 mg Furosemide (Lasix) 20 mg IVPUSH ONETIME ONE Stop: 10/18/16 10:12 Last Admin: 10/18/16 10:19 Dose: 20 mg Furosemide (Lasix) 60 mg IVPUSH NOW ONE Stop: 10/18/16 14:51 Last Admin: 10/18/16 17:27 Dose: 60 mg Hydromorphone HCl (Dilaudid) 1 mg IVPUSH ONETIME ONE Stop: 10/20/16 06:01 Last Admin: 10/20/16 06:27 Dose: 0.5 mg Lactated Ringer's (Ringers, Lactated) 500 mls @ 999 mls/hr IV .BOLUS ONE Stop: 10/16/16 20:02 Last Admin: 10/16/16 19:54 Dose: 999 mls/hr Lactated Ringer's (Ringers, Lactated) 1,000 mls @ 125 mls/hr IV ASDIRECTED [facility] Levofloxacin/Dextrose 750 mg/ (Premix) 150 mls @ 100 mls/hr IV Q48H [facility] Last Admin: 10/16/16 22:27 Dose: 100 mls/hr Sodium Chloride (Normal Saline) 1,000 mls @ 125 mls/hr IV ASDIRECTED JOHNNIE Stop: 10/17/16 18:00 Last Infusion: 10/17/16 12:37 Dose: 0 mls/hr Lactated Ringer's (Ringers, Lactated) 1,000 mls @ 125 mls/hr IV ASDIRECTED ONE Stop: 10/17/16 05:59 Last Admin: 10/16/16 22:31 Dose: Not Given Sodium Chloride (Normal Saline) 1,000 mls @ 70 mls/hr IV ASDIRECTED [facility] Magnesium Sulfate 4 gm/ Premix 100 mls @ 25 mls/hr IV ONETIME ONE Stop: 10/17/16 18:31 Last Admin: 10/17/16 20:13 Dose: Not Given Magnesium Sulfate 2 gm/ Premix 50 mls @ 25 mls/hr IV Q1H [facility] Stop: 10/17/16 16:59 Last Admin: 10/17/16 17:31 Dose: 25 mls/hr Insulin Aspart (Novolog) 0 unit SUBCUT QIDACANDBED JOHNNIE PRN Reason: Protocol Last Admin: 10/19/16 17:52 Dose: 3 unit Insulin Aspart (Novolog) 0 unit SUBCUT QIDACANDBED [facility] PRN Reason: Protocol Last Admin: 10/20/16 16:44 Dose: 4 unit Insulin Detemir (Levemir) 5 unit SUBCUT BEDTIME [facility] Last Admin: 10/20/16 21:10 Dose: 5 units Magnesium Hydroxide (Milk Of Magnesia) 30 ml PO STAT ONE Stop: 10/18/16 17:49 Last Admin: 10/18/16 18:23 Dose: 30 ml Magnesium Hydroxide (Milk Of Magnesia) 30 ml PO ONETIME ONE Stop: 10/21/16 06:11 Last Admin: 10/21/16 06:28 Dose: 30 ml Methylprednisolone Sodium Succinate (Solu-Medrol) 80 mg IVPUSH BID [facility] Last Admin: 10/20/16 09:25 Dose: 80 mg Metolazone (Zaroxolyn) 5 mg PO ONETIME ONE Stop: 10/21/16 07:07 Nitroglycerin (Nitrostat) 0.4 mg SL ONETIME ONE Stop: 10/20/16 03:29 Last Admin: 10/20/16 03:45 Dose: 0.4 mg Ondansetron HCl (Zofran) 4 mg IVPUSH ONETIME ONE Stop: 10/16/16 19:33 Last Admin: 10/16/16 19:51 Dose: 4 mg Potassium Chloride (Potassium Chloride) 40 meq PO ONETIME ONE Stop: 10/18/16 08:13 Last Admin: 10/18/16 09:23 Dose: 40 meq - Exam Quality Assessment: Reports: DVT prophylaxis General: Reports: alert, cooperative, no acute distress HEENT: Reports: Pupils equal, Pupils reactive, EOMI, Mucous membr. moist/pink Neck: Reports: supple Lungs: Reports: Clear to auscultation, Normal respiratory effort Cardiovascular: Reports: Regular Rate, Regular Rhythm. Denies: Murmurs Abdomen: Reports: bowel sounds present, soft, no tenderness, no distension (Female) Exam: Deferred Rectal (Female) Exam: Deferred Back Exam: Reports: normal inspection Extremities: Reports: edema (trace to 1+ -- improved from yesterday, teds bilat) Skin: Reports: warm, dry, intact Neurological: Reports: no new focal deficit (pleasantly confused- baseline; dementia) Psy/Mental Status: Reports: alert, normal affect, normal mood *Q Meaningful Use (DIS) - VTE *Q VTE Criteria *Q: - Stroke *Q Stroke Criteria *Q: - AMI *Q AMI Criteria *Q:
[2016-10-21] MEDS ORDERED: Insulin Aspart 100 Units/ML 3 ML Pen SUBCUT SCH (16:00)
[2016-10-22] MEDS ORDERED: Insulin Aspart 100 Units/ML 3 ML Pen SUBCUT SCH (06:00)
[2016-10-22] MEDS ORDERED: Metolazone 2.5 MG Tab PO SCH (07:03)
== END 2016-10-21 12:10 | DRG 640 ==
LOC: JD.ED 19:17 → JD.ICU 21:01 → JD.MS 10-18 10:46
PROVIDERS: ADMIT Internal Medicine Cardiovascular Disease; ATTEND Internal Medicine Cardiovascular Disease
DX: E86.0 Dehydration (principal); G93.40 Encephalopathy, unspecified; J96.01 Acute respiratory failure with hypoxia; E78.00 Pure hypercholesterolemia, unspecified; N39.0 Urinary tract infection, site not specified; R41.82 Altered mental status, unspecified; R11.2 Nausea with vomiting, unspecified; F39 Unspecified mood [affective] disorder; J06.9 Acute upper respiratory infection, unspecified; B97.89 Other viral agents as the cause of diseases classified elsewhere; I95.9 Hypotension, unspecified; B96.20 Unspecified Escherichia coli [E. coli] as the cause of diseases classified elsewhere; E87.70 Fluid overload, unspecified; R07.9 Chest pain, unspecified; I10 Essential (primary) hypertension; E78.5 Hyperlipidemia, unspecified; K21.9 Gastro-esophageal reflux disease without esophagitis; K59.00 Constipation, unspecified; E11.9 Type 2 diabetes mellitus without complications; Z79.4 Long term (current) use of insulin; F03.90 Unspecified dementia, unspecified severity, without behavioral disturbance, psychotic disturbance, mood disturbance, and anxiety; E03.9 Hypothyroidism, unspecified; G89.29 Other chronic pain; M79.7 Fibromyalgia; M19.90 Unspecified osteoarthritis, unspecified site; F32.9 Major depressive disorder, single episode, unspecified; F41.9 Anxiety disorder, unspecified; R26.2 Difficulty in walking, not elsewhere classified; Z79.82 Long term (current) use of aspirin; Z79.899 Other long term (current) drug therapy; Z88.8 Allergy status to other drugs, medicaments and biological substances; Z66 Do not resuscitate
CPT/HCPCS: 36415; 70450; 71010; 71250; 80053; 81001; 83605; 83880; 84443; 84484; 85025; 85610; 85730; 86738; 87040 ×2; 87086; 87088; 87186; 87804 ×2; 87899; 93005; 96361; 96374; 99285; J2405; J7120; P9612; 36600; 78582; 78582-26; 80048; 82803; 82962; 83735; 85027; 86140; 87486; 87581; 87633; 87798; 94640-76; 94664; 94760; 94761; A9270-GY; A9540; J0696; J1170; J1650; J1815-GY; J1940; J1956; J2920; J3475; J7030; J7040